=== PATIENT | male | born 1965 | race Caucasian/White ===

== ENCOUNTER → 2017-04-15 08:16 | Outpatient (CLI) | payer OTHER, SELFPAY ==
[2017-04-15 08:48] LABS: Absolute Lymphocyte Count 2.07 X10^3/ul (0.83-4.51); Absolute Neutrophil Count 4.2 X10^3/uL (2.0-7.7); Basophil# 0.04 X10^3/uL; Basophil% 0.6 % (0-1); Eosinophils% 4.2 % (0-5); Hematocrit 44.3 % (40-54); Hemoglobin 15.2 g/dl (13.0-16.5); Lymphocyte # 2.07 X10^3/ul (4.0); Lymphocyte % 29.2 % (19-41); Mean Corp Hgb Conc 34.3 g/gl (32-36); Mean Corpuscular Hgb 31.3 pg (27.0-32.0); Mean Corpuscular Volume 91.3 fL (80-94); Mean Platelet Vol. 9.6 fl (6.2-12.0); Monocyte# 0.49 X10^3/uL; Monocyte% 6.9 % (0-10); Neutrophil # 4.16 X10^3/uL (2.7-7.7); Neutrophil % 58.5 % (47-70); POSITIVE COUNT NO; POSITIVE DIFFERENTIAL NO; POSITIVE MORPHOLOGY NO; Platelet Count 274 K/mm3 (150-450); RBC Distribution Width CV 13.2 % (11.6-14.6); Red Blood Count 4.85 M/mm3 (4.6-6.2); White Blood Count 7.1 K/mm3 (4.4-11.0)
[2017-04-15 08:53] LABS: Erythrocyte Sedimentation Rate 15 mm/hr (0-20)
[2017-04-15 09:36] LABS: Microalbumin,Random Urine 33.7 mg/L (NO RANGE EST.); Microalbumin:Creatinine Ratio 92.3 mg/g CRE (<30 mg/g CRE)
[2017-04-15 09:53] LABS: AST(SGOT) 17 U/L (15-37); Alanine Aminotransfer ALT/SGPT 31 U/L (16-61); Albumin, Serum 3.8 g/dL (3.2-5.0); Alkaline Phosphatase 82 U/L (45-117); Anion Gap 10 (5-15); BUN 20 mg/dL (7-18); BUN/Creat Ratio 28.5 RATIO (10-20); Bilirubin, Direct < 0.05 mg/dL (0.00-0.30); CRP < 2.90 mg/L (0.0-3.0); Calcium,Total 8.8 mg/dL (8.5-10.1); Chloride 99 mmol/L (98-107); Cholesterol 211 mg/dL (200); EST Glomerular Filtration Rate 125 mL/min (>60); Est Glom Filt Rate - Afr Amer 151 mL/min (>60); Globulin 3.5 g/dL (2.2-4.2); Glucose 258 mg/dL (74-106); High Density Lipoprotein 29 mg/dL; Potassium 4.3 mmol/L (3.5-5.1); Protein, Total 7.3 g/dL (6.4-8.2); Rheumatoid Factor < 10.0 IU/mL (<15); Sodium Level 133 mmol/L (136-145); Thyroid Stim Hormone (TSH) 1.54 uIU/mL (0.358-3.74); Triglycerides 894 mg/dL
[2017-04-17 10:08] LABS: Vitamin D,25 Hydroxy 15.2 ng/mL (29.95-100.01)
[2017-04-17 14:15] LABS: ANTINUCLEAR ANTIBODIES DIRECT Negative (Negative)
[2017-04-20 14:13] LABS: CCP IgG Antibodies 3 units (0-19); HLA B27 Negative (.)
== END ==
PROVIDERS: Family Provider Family Medicine; PCP Family Medicine; Visit Provider Internal Medicine Cardiovascular Disease
DX: E11.65 Type 2 diabetes mellitus with hyperglycemia (principal); M06.9 Rheumatoid arthritis, unspecified; I25.10 Atherosclerotic heart disease of native coronary artery without angina pectoris
CPT/HCPCS: 80048; 80061; 80076; 81374; 82043; 82306; 82570; 83036; 84443; 85025; 85652; 86038; 86140; 86200; 86431

== ENCOUNTER 2017-09-26 11:36 | Day surgery (SDC) | payer OTHER, SELFPAY ==
--- NOTE | 2017-09-19 13:18 | PCM.HP.BLA ---
History and Physical DATE OF SURGERY: Right Carpal Tunnel Release on 09/26/2017 followed by a Left Carpal Tunnel Release on 10/18/17 SCHEDULED PROCEDURE: Right carpal tunnel release, left carpal tunnel release 3 weeks later HISTORY OF PRESENT ILLNESS: This is a 52-year-old male who has been having ongoing bilateral hand pain for approximately 8 years duration. Patient states he has pain that is aching and constant in both hands. He does report numbness and tingling into both hands. Pain is a 5/10 on average and can reach as high as a 10/10 at worst. Patient underwent an EMG nerve conduction study test on May 26, 2017 which revealed moderate bilateral carpal tunnel syndrome. Patient states the pain wakes him at night. Patient currently denies any chest pain, shortness of breath, fevers chills, recent infections. Patient has medical history pertinent for type 2 diabetes mellitus and hypertension. He is also underwent a heart stent in 2004 and states it was reopened in 2015. Patient is currently on plavix and aspirin. After failing conservative measures and discussing all treatment options with Dr. Matteo Ramos, the patient would like to proceed with the staged carpal tunnel release beginning with the right on September 26, 2017 followed by the left on October 18, 2017. REVIEW OF SYSTEMS: ROS: Const: Denies change in appetite, fever and weight change. CV: Denies chest pain, heart murmur and irregular heartbeat. Resp: Reports cough, but denies pneumonia, shortness of breath, tuberculosis and wheezing. GI: Reports constipation and diarrhea, but denies heartburn, nausea, rectal itching, bloody stools and vomiting. : Denies incontinence. Musculo: Denies leg swelling, pain, trouble walking and weakness. Skin: Denies Raynaud's, history of shingles and tattoo. Neuro: Reports numbness/tingling but denies ambulatory dysfunction, dizziness and tremor. Psych: Reports anxiety and insomnia, but denies stress. Gil/Lymph: Denies anemia, bleeding/bruising tendency and past transfusion. Reviewed, no changes. PAST MEDICAL HISTORY: Advance Care Plan: No Advance Directives Effective Date: 07/18/2017 PMH: Medical Problems: Arthritis, Diabetes, High Blood Pressure Accidents: Fracture - (1969) LT WRIST Surgical Hx: Heart Stent Anesthesia Complications: None Assistive Devices: Glasses Reviewed, no changes. SOCIAL HISTORY: SH: Marital: .Occupation: Not Currently Working.Work Status: Not Working Currently.Hand Dominance: Left-handed. Personal Habits: Cigarette Use: Former.Alcohol: Occasionally.Drug Use: Former Illegal Drug User.Enjoy Exercising: Exercises 1-3 X/Week. Reviewed, no changes. VITALS: Ht: 66.5 Wt: 206lb Wt k.442 BMI: 32.7 BP: 172/103 Pulse: 70 Resp: 16 T: 97.2 T: 36.2C ALLERGIES: No Known Drug Allergy MEDICATIONS: Tramadol HCL 50 mg 1-2 by mouth every 6 hours as needed pain, Lopressor 50 mg 1o bid, Plavix 75 mg 1po qday, Crestor 40 mg 4 times A week, Lovaza 1 gm 1po qday, Vitamin D3 Ultra Potency 61824 Unit 1 weekly, Acarbose 50 mg 1po bid, Lantus Solostar 100 Unit/ML daily PRE-OP EXAM: General appearance:NORMAL Other: Eyes: Conjunctivae and lids: NORMAL Pupils: ERR Ears, Nose, Mouth, and Throat: NORMAL Other: Inspection of lips, teeth and gums: NORMAL Other: Neck: Examination of neck: no masses noted. Respiratory: Assessment of respiratory effort: NORMAL Other: Auscultation of lungs: clear to auscultation no wheezes, rhonchi or rales. Cardiovascular: Auscultation of heart: regular rate and rhythm, no murmurs, gallops or rubs. Exam of carotid arteries: NORMAL Other: Gastrointestinal: Exam of abdomen: soft, nontender, nondistended bowel sounds present. PHYSICAL EXAMINATION: On exam of bilateral hands and they're cool to touch without erythema. Patient is nontender to palpation over bilateral hands. Patient has limited range of motion of wrist bilaterally. Special tests: Positive saline's bilaterally, positive Tinel's bilaterally, positive carpal compression test bilaterally. Negative Tinel's at the elbow. Sensation is intact to light touch. IMAGING STUDIES: EMG nerve conduction study exam was performed on May 26, 2017 at [facility] which reveals bilateral moderate carpal tunnel syndrome IMPRESSION: 1. Right moderate carpal tunnel syndrome 2. Left moderate carpal tunnel syndrome 3. Hypertension 4. Type 2 diabetes mellitus 5. History of previous heart stent 2004 and reopened 2015 PLAN: Dr. Ramos did discuss and review with the patient all treatment options including surgical versus nonsurgical options. Patient does wish to proceed with the above-stated procedure. Potential risks, benefits, and complications of the procedure were discussed in detail including but not limited to , infection, nerve and blood vessel damage, persistent pain, numbness, tingling, paresthesias, blood clot, pulmonary embolism, and requirement for possible further surgery. The patient expressed full understanding and has no further questions for the doctor. Patient does agree to proceed with the above-stated procedure and has signed the surgery consent form. We are contacting patient's physician with regards to stopping his Plavix and aspirin 5 days before surgery. ___ I have re-examined the patient. There are no clinical changes since date of exam. ___ See progress notes for changes. ___ Dictated on admission Date: Time: Signature:
[2017-09-26 11:53] VITALS: BP 121/66; PULSE 74; RESP 18; TEMP 36.5; O2SAT 97; BMI 33.4
[2017-09-26 12:56] LABS: Bedside Glucose 199 mg/dL (70-110)
[2017-09-26] MEDS: Bupivacaine 0.5% PF 10 ML VIAL (13:30)
--- NOTE | 2017-09-26 13:34 | PCM.OPRPT ---
Report of Operation Date of Procedure: 09/26/17 Pre-Operative Diagnosis: Right carpal tunnel syndrome Post-Operative Diagnosis: Right carpal tunnel syndrome Surgery/Procedure Performed:: Right carpal tunnel release Description of Surgical Findings:: Complete release transverse carpal ligament computer software engineer: None Type of Anesthesia:: Block,[place] Anesthesiologist: Shiva [place] Special Medications: Clindamycin Estimated Blood Loss (mL): 2 Fluids Replaced: 500 mL crystalloid Description of Procedure: Brief history operative indications: 52-year-old male patient with right carpal tunnel syndrome patient wished to proceed with right open carpal tunnel release. After discussing risks and benefits including but not limited to blood loss, DVTs, PEs, neurovascular damage, infection, hematoma and general risk of anesthesia, the patient demonstrated understanding wish to proceed with right open carpal tunnel release Procedure: On the date of the procedure, the patient's right upper extremity was marked in the preoperative area. Patient was taken back to the operating room, where the tourniquet was placed on the right upper extremity. Patient was given light sedation. All bony prominences are identified well-padded. Anesthesia assumed control C-spine and airway and remained in control throughout the remainder the procedure. [place] block was administered by anesthesia. The right upper extremity was prepped in sterile fashion. Surgeon then scrub. Upon reentering the room, the right upper extremity was prepped in a standard orthopedic fashion. A timeout was called and everyone agreed upon the side, the site, the procedure to be performed, patient identity and antibiotics given. The incision was marked out. Incision was taken at the skin subtenons tissue fat down to fascia. Fascia was then lightly tethered until the median nerve was visible. A [place] was placed proximally and distally, and then scissors were placed proximally and distally to release the transverse carpal ligament. During the release the others were never completely closed. The [place] was then placed proximally and distally once more to verify the transverse carpal ligament had been adequately released. The wound was then copiously irrigated out with normal saline. Wound was then closed using 3-0 nylon suture. 10 cc of 50-50 mixture of 1% lidocaine and 0.5% Sensorcaine without epinephrine injection was given. Xeroform dressing was placed, sterile dressing was placed, compressive dressing was placed. Tourniquet was let down. Volar splint was placed. Patient was awakened by anesthesia and transferred to the PACU for recovery. Postoperative plan: The patient will follow up in 2 weeks for removal splint removal sutures. At that time if they are doing well they will follow-up as needed. - Complications None - Admit VTE Documentation VTE Present on Admission: No VTE Mechan Device Prophylaxis: SCD's, Thigh High JENY Smith VTE Pharm Prophylaxis ordered?: No Reason prophylaxis not ordered:: Treatment Not Indicated
[2017-09-26 13:40] VITALS: BP 121/66; BP 96/61; PULSE 70; RESP 16; TEMP 36.3; O2SAT 92
[2017-09-26 13:45] VITALS: BP 121/66; BP 95/65; PULSE 70; RESP 16; O2SAT 94
[2017-09-26 13:50] VITALS: BP 104/64; BP 121/66; PULSE 68; RESP 16; O2SAT 93
[2017-09-26 13:55] VITALS: BP 100/75; BP 121/66; PULSE 68; RESP 16; TEMP 36.2; O2SAT 94
[2017-09-26 14:15] VITALS: BP 121/66
== END 2017-09-26 14:20 | disposition home or self-care (01) ==
LOC: SDC 11:37 → AC 11:38
PROVIDERS: Family Provider Family Medicine; PCP Family Medicine; Visit Provider Specialist
PROC: (CPT 64721; principal; 2017-09-26 15:00)
DX: G56.01 Carpal tunnel syndrome, right upper limb (principal); E78.00 Pure hypercholesterolemia, unspecified; E11.9 Type 2 diabetes mellitus without complications; Z79.4 Long term (current) use of insulin; I10 Essential (primary) hypertension; I25.2 Old myocardial infarction; Z87.891 Personal history of nicotine dependence
CPT/HCPCS: 01810; 64721; 82962; J7120

== ENCOUNTER → 2017-11-14 08:42 | Outpatient (CLI) | payer OTHER, SELFPAY | PROVIDERS: Family Provider Family Medicine; PCP Family Medicine; Visit Provider Specialist | DX: Z53.9 Procedure and treatment not carried out, unspecified reason (principal) ==

== ENCOUNTER → 2017-11-22 07:48 | Outpatient (CLI) | payer OTHER, SELFPAY ==
[2017-11-22 09:42] LABS: AST(SGOT) 20 U/L (15-37); Alanine Aminotransfer ALT/SGPT 29 U/L (16-61); Albumin, Serum 3.6 g/dL (3.2-5.0); Alkaline Phosphatase 74 U/L (45-117); Bilirubin, Direct 0.06 mg/dL (0.00-0.30); Cholesterol 200 mg/dL (200); Globulin 3.5 g/dL (2.2-4.2); High Density Lipoprotein 27 mg/dL; Protein, Total 7.1 g/dL (6.4-8.2); Triglycerides 560 mg/dL
== END ==
PROVIDERS: Family Provider Family Medicine; PCP Family Medicine; Referring Provider Nurse Practitioner Family; Visit Provider Nurse Practitioner Family
DX: E78.5 Hyperlipidemia, unspecified (principal); Z79.899 Other long term (current) drug therapy
CPT/HCPCS: 36415; 80061; 80076

== ENCOUNTER 2018-03-07 06:24 | Day surgery (SDC) | payer OTHER, SELFPAY ==
[2018-02-23 11:16] VITALS: BMI 32.3
--- NOTE | 2018-03-02 12:39 | PCM.HP.BLA ---
History and Physical DATE OF SURGERY: 03/07/2018 SCHEDULED PROCEDURE: left carpal tunnel release HISTORY OF PRESENT ILLNESS: This is a 52-year-old male who has been having ongoing bilateral hand pain for the past 8 years. Patient recently underwent a right carpal tunnel release on September 26, 2017. He is doing well from this procedure. He continues to have numbness and tingling into the left upper extremity. EMG nerve conduction study exams was obtained on May 26, 2017 which did reveal moderate carpal tunnel syndrome on the left. Patient states symptoms are daily and affect his activities of daily living. Patient has a medical history pertinent for type 2 diabetes mellitus and hypertension. Patient also underwent a heart stent 2004 and 2015. Patient currently is on Plavix and aspirin. Patient was able to stop his Plavix and aspirin 5 days prior to surgery on previous carpal tunnel release. He currently denies any chest pain, shortness of breath, fevers chills, or recent infections. Denies any change in medical history. After discussion with Dr. Matteo Ramos the patient would like to proceed with a left carpal tunnel release. REVIEW OF SYSTEMS: ROS: Const: Denies change in appetite, fever and weight change. CV: Denies chest pain, heart murmur and irregular heartbeat. Resp: Reports cough, but denies pneumonia, shortness of breath, tuberculosis and wheezing. GI: Reports constipation and diarrhea, but denies heartburn, nausea, rectal itching, bloody stools and vomiting. : Denies incontinence. Musculo: Denies leg swelling, pain, trouble walking and weakness. Skin: Denies Raynaud's, history of shingles and tattoo. Neuro: Reports numbness/tingling but denies ambulatory dysfunction, dizziness and tremor. Psych: Reports anxiety and insomnia, but denies stress. Gil/Lymph: Denies anemia, bleeding/bruising tendency and past transfusion. Reviewed, no changes. PAST MEDICAL HISTORY: Advance Care Plan: Other Directive, POA Effective Date: 03/02/2018 Other Directive, LIVING WILL Effective Date: 03/02/2018 PMH: Medical Problems: Arthritis, Diabetes, High Blood Pressure Accidents: Fracture - (1969) LT WRIST Surgical Hx: Heart Stent RT Carpal Tunnel Release - (09/26/2017) [email or web address] Anesthesia Complications: None Assistive Devices: Glasses Reviewed, no changes. SOCIAL HISTORY: SH: Marital: .Occupation: Not Currently Working.Work Status: Not Working Currently.Hand Dominance: Left-handed. Personal Habits: Cigarette Use: Former.Alcohol: Occasionally.Drug Use: Former Illegal Drug User.Enjoy Exercising: Exercises 1-3 X/Week. Reviewed, no changes. VITALS: Ht: 66.5 Wt: 202lb Wt k.627 BMI: 32.1 BP: 110/64 Pulse: 70 Resp: 16 T: 97.6 T: 36.4C ALLERGIES: No Known Drug Allergy MEDICATIONS: Lopressor 50 mg 1o bid, Plavix 75 mg 1po qday, Crestor 40 mg 4 times A week, Lovaza 1 gm 1po qday, Vitamin D3 Ultra Potency 05662 Unit 1 weekly, Acarbose 50 mg 1po bid, Lantus Solostar 100 Unit/ML daily, Tylenol 8 Hour 650 mg prn PRE-OP EXAM: General appearance:NORMAL Other: Eyes: Conjunctivae and lids: NORMAL Pupils: ERR Ears, Nose, Mouth, and Throat: NORMAL Other: Inspection of lips, teeth and gums: NORMAL Other: Neck: Examination of neck: no masses noted. Respiratory: Assessment of respiratory effort: NORMAL Other: Auscultation of lungs: clear to auscultation no wheezes, rhonchi or rales. Cardiovascular: Auscultation of heart: regular rate and rhythm, no murmurs, gallops or rubs. Exam of carotid arteries: NORMAL Other: Gastrointestinal: Exam of abdomen: soft, nontender, nondistended bowel sounds present. PHYSICAL EXAMINATION: Left hand is cool to touch without erythema. Patient has full composite fist and full extension of fingers. No significant atrophy appreciated. Patient has a positive carpal compression exam on the left, positive Tinel's on the left wrist. Negative Tinel's at the elbow. Sensation intact to light touch. Neurovascularly intact. IMAGING STUDIES: EMG nerve conduction study exam was done on May 26, 2017 which did reveal moderate carpal tunnel syndrome on the left. IMPRESSION: 1. Left carpal tunnel syndrome 2. Hypertension 3. Type 2 diabetes mellitus 4. Previous heart stent: On Plavix and aspirin PLAN: Dr. Matteo Ramos did discuss and review with the patient all treatment options including surgical versus nonsurgical options. Patient does wish to proceed with the above-stated procedure. Potential risks, benefits, and complications of the procedure were discussed in detail including but not limited to , infection, nerve and blood vessel damage, persistent pain, numbness, tingling, paresthesias, blood clot, pulmonary embolism, and requirement for possible further surgery. The patient expressed full understanding and has no further questions for the doctor. Patient does agree to proceed with the above-stated procedure and has signed the surgery consent form. Patient will hold the Plavix and aspirin prior to surgery as done prior to his right carpal tunnel release. This dictation was created using voice recognition software. Phonetic and/or grammatical errors may exist.. ___ I have re-examined the patient. There are no clinical changes since date of exam. ___ See progress notes for changes. ___ Dictated on admission Date: Time: Signature:
[2018-03-07 06:50] VITALS: BP 117/69; PULSE 71; RESP 18; TEMP 36.2; O2SAT 95; BMI 32.6
[2018-03-07 07:11] LABS: Bedside Glucose 295 mg/dL (70-110)
[2018-03-07] MEDS: Bupivacaine Mpf 0.5% 30 ML VIAL (08:30)
--- NOTE | 2018-03-07 08:37 | PCM.OPRPT ---
Report of Operation Date of Procedure: 03/07/18 Pre-Operative Diagnosis: Left carpal tunnel syndrome Post-Operative Diagnosis: Left carpal tunnel syndrome Surgery/Procedure Performed:: Left carpal tunnel release Description of Surgical Findings:: Complete release transverse carpal ligament service or work dispatcher: None Type of Anesthesia:: Block,[place] Anesthesiologist: Shiva [place] Special Medications: 600 mg clindamycin Estimated Blood Loss (mL): 2 Fluids Replaced: 400 mL crystalloid Description of Procedure: Brief history operative indications: 52-year-old male with left carpal tunnel syndrome. Patient wished to proceed with left open carpal tunnel release. After discussing risks and benefits including but not limited to blood loss, DVTs, PEs, neurovascular damage, infection, hematoma and general risk of anesthesia, the patient demonstrated understanding wish to proceed with left open carpal tunnel release Procedure: On the date of the procedure, the patient's left upper extremity was marked in the preoperative area. Patient was taken back to the operating room, where the tourniquet was placed on the right upper extremity. Patient was given light sedation. All bony prominences are identified well-padded. Anesthesia assumed control C-spine and airway and remained in control throughout the remainder the procedure. [place] block was administered by anesthesia. The left upper extremity was prepped in sterile fashion. Surgeon then scrub. Upon reentering the room, the left upper extremity was prepped in a standard orthopedic fashion. A timeout was called and everyone agreed upon the side, the site, the procedure to be performed, patient identity and antibiotics given. The incision was marked out. Incision was taken at the skin subtenons tissue fat down to fascia. Fascia was then lightly tethered until the median nerve was visible. A [place] was placed proximally and distally, and then scissors were placed proximally and distally to release the transverse carpal ligament. During the release the others were never completely closed. The [place] was then placed proximally and distally once more to verify the transverse carpal ligament had been adequately released. The wound was then copiously irrigated out with normal saline. Wound was then closed using 3-0 nylon suture. 10 cc of 50-50 mixture of 1% lidocaine and 0.5% Sensorcaine without epinephrine injection was given. Xeroform dressing was placed, sterile dressing was placed, compressive dressing was placed. Tourniquet was let down. Volar splint was placed. Patient was awakened by anesthesia and transferred to the PACU for recovery. Postoperative plan: The patient will follow up in 2 weeks for removal splint removal sutures. At that time if they are doing well they will follow-up as needed. - Complications none - Admit VTE Documentation VTE Present on Admission: No VTE Mechan Device Prophylaxis: SCD's VTE Pharm Prophylaxis ordered?: No Reason prophylaxis not ordered:: Treatment Not Indicated
[2018-03-07 08:45] VITALS: BP 117/69; BP 98/62; PULSE 66; RESP 16; TEMP 36.4; O2SAT 90
[2018-03-07 08:50] VITALS: BP 117/69; BP 99/61; PULSE 66; RESP 16; O2SAT 92
[2018-03-07 08:55] VITALS: BP 117/69; BP 91/64; PULSE 65; RESP 17; O2SAT 92
[2018-03-07 09:08] VITALS: BP 100/62; BP 117/69; PULSE 64; RESP 16; TEMP 36.3; O2SAT 94
[2018-03-07 09:11] LABS: Bedside Glucose 229 mg/dL (70-110)
[2018-03-07] MEDS: Ketorolac 30 MG/ML Syringe IV (09:34)
[2018-03-07 09:37] VITALS: BP 117/69
--- OUTSIDE RECORDS SUMMARY | 2018-05-09 01:37 | XMS RPT_ITS ---
:1965 Author Organization OHIP Support Name Relationship Address Phone DIXON, [place] Unavailable [address] + [place] [address] S Unavailable Unavailable Unavailable ALVAROGROVELAND, [place] Unavailable [address] + [place] [address] S Unavailable Unavailable Unavailable ALVAROMOUNT HERMON, [place] Unavailable [address] + [place] [address] S Unavailable Unavailable Unavailable ALVAROGROVELAND, [place] Unavailable [address] + [place] [address] S Unavailable Unavailable Unavailable ALVARO, [place] Unavailable [address] + [place] [address] S Unavailable Unavailable Unavailable ALVARO, [place] Unavailable [address] + [place] [address] S Unavailable Unavailable Unavailable ALVARO, [place] Unavailable [address] + [place] [address] UE Unavailable Unavailable Unavailable DIXON, [place] Unavailable [address] + [place] [address] UE Unavailable Unavailable Unavailable ALVARO, [place] Unavailable [address] + [place] [address] UE Unavailable Unavailable Unavailable ALVAROGROVELAND, [place] Unavailable [address] + [place] [address] UE Unavailable Unavailable Unavailable ALVARO, [place] Unavailable [address] + [place] [address] UE Unavailable Unavailable Unavailable Care Team Providers Name Role Phone Melanie Mejia Attending Unavailable Matteo Ramos Attending Unavailable Matteo Ramos Referring Unavailable Raúl Goss Primary Care Unavailable Farhat, Earle Attending Unavailable Goss, Raúl Referring Unavailable Farhat, Earle Attending Unavailable Efrain, Raghav Primary Care Unavailable Farhat, [place] Attending Unavailable Farhat, Earle Referring Unavailable Goss, Raúl Primary Care Unavailable Gina Kang Attending Unavailable Ilana Lockett Attending Unavailable Radha Jaime Attending Unavailable Efrain, Raghav Referring Unavailable Goss, Raúl Primary Care Unavailable Rachel, Matteo Attending Unavailable Rachel, Matteo Referring Unavailable Goss, Raúl Primary Care Unavailable Rachel, Matteo Attending Unavailable Rachel, Matteo Referring Unavailable Goss, Raúl Primary Care Unavailable Roof, Zachariah H Attending Unavailable Roof, Zachariah H Referring Unavailable Goss, Raúl Primary Care Unavailable PROBLEMS PROBLEMS DATE TYPE CONDITION / CODE ATTENDING STATUS SOURCE 02/26/2018 Unknown I10 - Essential Farhat, Earle Active [place] (primary) [facility] hypertension / Hospital I10(ICD-10) Repository 02/26/2018 Unknown Z95.5 - Presence of Farhat, Earle Active [place] coronary angioplasty [facility] implant [facility] graft / Hospital Z95.5(ICD-10) Repository 02/26/2018 Unknown E78.2 - Mixed Farhat, [place] Active [place] hyperlipidemia / Community E78.2(ICD-10) Hospital Repository 09/26/2017 Unknown G89.18 - Other acute Rachel, Matteo Active [place] postprocedural pain / Community G89.18(ICD-10) Hospital Repository 06/16/2017 Unknown I25.2 - Old Jaime, Active [place] myocardial infarction Radha Wan [facility] / I25.2(ICD-10) Hospital Repository 04/15/2017 Unknown E11.65 - Type 2 Farhat, Earle Active [place] diabetes mellitus [facility] with hyperglycemia / Hospital E11.65(ICD-10) Repository 04/15/2017 Unknown I25.10 - Farhat, Earle Active [place] Atherosclerotic heart Community disease of [facility] coronary artery Repository without angina pectoris / I25.10(ICD-10) 04/15/2017 Unknown M06.9 - Rheumatoid Farhat, Earle Active [place] arthritis, Community unspecified / Hospital M06.9(ICD-10) Repository PROCEDURES PROCEDURES No Procedure Records FoundRESULTS RESULTS BEDSIDE GLUCOSE Collected: 03/07/2018 Status: F Source: [place] 9:06 AM [facility] REPOSITORY TYPE CODE TESTS RESULT OUT OF REFERENCE UNITS RANGE LAB L501.080 70-110 mg/dL High BEDSIDE GLU 229 Result Comment: MANAGEMENT OF PATIENT CARE PER NURSING PROTOCOL Performed By: #### L501.080 #### [facility] Point of Care [address] [place] [address] OPERATIVE REPORT Observed: 03/07/2018 Status: F Source: [place] 8:39 AM [facility] REPOSITORY [facility] Medical Records Department [address] [place] [address] Operative Report 03/07/18 0837 MR#: [id number] Acct: [id number] Name: JAYASHREE JOHN Rep #: [id number] : 1965 52 From: Matteo Ramos MD PCP: Raúl Goss MD Status: REG [facility] [place] Y Location: [place] [address] Report of Operation Date of Procedure: 03/07/18 Pre-Operative Diagnosis: Left carpal tunnel syndrome Post-Operative Diagnosis: Left carpal tunnel syndrome Surgery/Procedure Performed:: Left carpal tunnel release Description of Surgical Findings:: Complete release transverse carpal ligament electricity trader: None Type of Anesthesia:: Block,Alligator Anesthesiologist: Shiva [place] Special Medications: 600 mg clindamycin Estimated Blood Loss (mL): 2 Fluids Replaced: 400 mL crystalloid Description of Procedure: Brief history operative indications: 52-year-old male with left carpal tunnel syndrome. Patient wished to proceed with left open carpal tunnel release. After discussing risks and benefits including but not limited to blood loss, DVTs, PEs, neurovascular damage, infection, hematoma and general risk of anesthesia, the patient demonstrated understanding wish to proceed with left open carpal tunnel release Procedure: On the date of the procedure, the patient's left upper extremity was marked in the preoperative area. Patient was taken back to the operating room, where the tourniquet was placed on the right upper extremity. Patient was given light sedation. All bony prominences are identified well-padded. Anesthesia assumed control C-spine and airway and remained in control throughout the remainder the procedure. Alligator block was administered by anesthesia. The left upper extremity was prepped in sterile fashion. Surgeon then scrub. Upon reentering the room, the left upper extremity was prepped in a standard orthopedic fashion. A timeout was called and everyone agreed upon the side, the site, the procedure to be performed, patient identity and antibiotics given. The incision was marked out. Incision was taken at the skin subtenons tissue fat down to fascia. Fascia was then lightly tethered until the median nerve was visible. A Delta was placed proximally and distally, and then scissors were placed proximally and distally to release the transverse carpal ligament. During the release the others were never completely closed. The Delta was then placed proximally and distally once more to verify the transverse carpal ligament had been adequately released. The wound was then copiously irrigated out with normal saline. Wound was then closed using 3-0 nylon suture. 10 cc of 50-50 mixture of 1% lidocaine and 0.5% Sensorcaine without epinephrine injection was given. Xeroform dressing was placed, sterile dressing was placed, compressive dressing was placed. Tourniquet was let down. Volar splint was placed. Patient was awakened by anesthesia and transferred to the PACU for recovery. Postoperative plan: The patient will follow up in 2 weeks for removal splint removal sutures. At that time if they are doing well they will follow-up as needed. - Complications none - Admit VTE Documentation VTE Present on Admission: No VTE Mechan Device Prophylaxis: SCD's VTE Pharm Prophylaxis ordered?: No Reason prophylaxis not ordered:: Treatment Not Indicated 03/07/18 0839 <Electronically signed by Matteo Ramos MD> Date Matteo Ramos MD CC: Raúl Goss MD; Matteo Ramos MD Signed BEDSIDE GLUCOSE Collected: 03/07/2018 Status: F Source: [place] 6:58 AM [facility] REPOSITORY TYPE CODE TESTS RESULT OUT OF REFERENCE UNITS RANGE LAB L501.080 70-110 mg/dL High BEDSIDE GLU 295 Result Comment: MANAGEMENT OF PATIENT CARE PER NURSING PROTOCOL Performed By: #### L501.080 #### [facility] Point of Care [address] [place] [address] HISTORY AND PHYSICAL Observed: 03/02/2018 Status: F Source: RACHEL EXAM 12:39 PM [facility] REPOSITORY [facility] Medical Records Department [address] [place] [address] History and Physical 03/02/18 1239 MR#: [id number] Acct: [id number] Name: JAYASHREE JOHN Rep #: [id number] : 1965 52 From: Mark Loo PA-C PCP: Raúl Goss MD Status: PRE [facility] [place] Y Location: [facility] [place] [facility] History and Physical DATE OF SURGERY: 03/07/2018 SCHEDULED PROCEDURE: left carpal tunnel release HISTORY OF PRESENT ILLNESS: This is a 52-year-old male who has been having ongoing bilateral hand pain for the past 8 years. Patient recently underwent a right carpal tunnel release on September 26, 2017. He is doing well from this procedure. He continues to have numbness and tingling into the left upper extremity. EMG nerve conduction study exams was obtained on May 26, 2017 which did reveal moderate carpal tunnel syndrome on the left. Patient states symptoms are daily and affect his activities of daily living. Patient has a medical history pertinent for type 2 diabetes mellitus and hypertension. Patient also underwent a heart stent 2004 and 2015. Patient currently is on Plavix and aspirin. Patient was able to stop his Plavix and aspirin 5 days prior to surgery on previous carpal tunnel release. He currently denies any chest pain, shortness of breath, fevers chills, or recent infections. Denies any change in medical history. After discussion with Dr. Matteo Ramos the patient would like to proceed with a left carpal tunnel release. REVIEW OF SYSTEMS: ROS: Const: Denies change in appetite, fever and weight change. CV: Denies chest pain, heart murmur and irregular heartbeat. Resp: Reports cough, but denies pneumonia, shortness of breath, tuberculosis and wheezing. GI: Reports constipation and diarrhea, but denies heartburn, nausea, rectal itching, bloody stools and vomiting. : Denies incontinence. Musculo: Denies leg swelling, pain, trouble walking and weakness. Skin: Denies Raynaud's, history of shingles and tattoo. Neuro: Reports numbness/tingling but denies ambulatory dysfunction, dizziness and tremor. Psych: Reports anxiety and insomnia, but denies stress. Gil/Lymph: Denies anemia, bleeding/bruising tendency and past transfusion. Reviewed, no changes. PAST MEDICAL HISTORY: Advance Care Plan: Other Directive, POA Effective Date: 03/02/2018 Other Directive, LIVING WILL Effective Date: 03/02/2018 PMH: Medical Problems: Arthritis, Diabetes, High Blood Pressure Accidents: Fracture - (1969) LT WRIST Surgical Hx: Heart Stent RT Carpal Tunnel Release - (09/26/2017) [email or web address] Anesthesia Complications: None Assistive Devices: Glasses Reviewed, no changes. SOCIAL HISTORY: SH: Marital: .Occupation: Not Currently Working.Work Status: Not Working Currently.Hand Dominance: Left-handed. Personal Habits: Cigarette Use: Former.Alcohol: Occasionally.Drug Use: Former Illegal Drug User.Enjoy Exercising: Exercises 1-3 X/Week. Reviewed, no changes. VITALS: Ht: 66.5 Wt: 202lb Wt k.627 BMI: 32.1 BP: 110/64 Pulse: 70 Resp: 16 T: 97.6 T: 36.4C ALLERGIES: No Known Drug Allergy MEDICATIONS: Lopressor 50 mg 1o bid, Plavix 75 mg 1po qday, Crestor 40 mg 4 times A week, Lovaza 1 gm 1po qday, Vitamin D3 Ultra Potency 77484 Unit 1 weekly, Acarbose 50 mg 1po bid, Lantus Solostar 100 Unit/ML daily, Tylenol 8 Hour 650 mg prn PRE-OP EXAM: General appearance:NORMAL Other: Eyes: Conjunctivae and lids: NORMAL Pupils: ERR Ears, Nose, Mouth, and Throat: NORMAL Other: Inspection of lips, teeth and gums: NORMAL Other: Neck: Examination of neck: no masses noted. Respiratory: Assessment of respiratory effort: NORMAL Other: Auscultation of lungs: clear to auscultation no wheezes, rhonchi or rales. Cardiovascular: Auscultation of heart: regular rate and rhythm, no murmurs, gallops or rubs. Exam of carotid arteries: NORMAL Other: Gastrointestinal: Exam of abdomen: soft, nontender, nondistended bowel sounds present. PHYSICAL EXAMINATION: Left hand is cool to touch without erythema. Patient has full composite fist and full extension of fingers. No significant atrophy appreciated. Patient has a positive carpal compression exam on the left, positive Tinel's on the left wrist. Negative Tinel's at the elbow. Sensation intact to light touch. Neurovascularly intact. IMAGING STUDIES: EMG nerve conduction study exam was done on May 26, 2017 which did reveal moderate carpal tunnel syndrome on the left. IMPRESSION: 1. Left carpal tunnel syndrome 2. Hypertension 3. Type 2 diabetes mellitus 4. Previous heart stent: On Plavix and aspirin PLAN: Dr. Matteo Ramos did discuss and review with the patient all treatment options including surgical versus nonsurgical options. Patient does wish to proceed with the above-stated procedure. Potential risks, benefits, and complications of the procedure were discussed in detail including but not limited to , infection, nerve and blood vessel damage, persistent pain, numbness, tingling, paresthesias, blood clot, pulmonary embolism, and requirement for possible further surgery. The patient expressed full understanding and has no further questions for the doctor. Patient does agree to proceed with the above-stated procedure and has signed the surgery consent form. Patient will hold the Plavix and aspirin prior to surgery as done prior to his right carpal tunnel release. This dictation was created using voice recognition software. Phonetic and/or grammatical errors may exist.. ___ I have re-examined the patient. There are no clinical changes since date of exam. ___ See progress notes for changes. ___ Dictated on admission Date: Time: Signature: 03/02/18 1239 <Electronically signed by Mark Loo PA-C> Date Mark Loo PA-C Cosigner Signature: Date (if applicable) CC: Raúl Goss MD; Mark MAZARIEGOS Signed CARDIOLOGY VISIT Observed: 02/23/2018 Status: F Source: R[place]HEL REPORT 11:40 AM [facility] REPOSITORY [facility] [address] [place] [address] OFFICE VISIT Date of Service: 02/23/18 MR#: [id number] Acct: [id number] Name: JAYASHREE JHON Rep #: [id number] : 1965 Provider: Earle Dougherty MD Age/Sex: 52/M Location: [facility] Status: Signed HPI HPI Chief Complaint: Follow-up visit Details: JAYASHREE JOHN, is a 52 M who presents to the office today for a cardiovascular follow-up. He has a history of coronary artery disease with stenting to his circumflex in 2004 and in 2015, palpitations, hypertension and hyperlipidemia. From a cardiac standpoint, patient is doing well. He does not have any chest discomfort/heaviness/tightness. His exercise tolerance is stable for his age. He does not have any worsening symptoms of shortness of breath. He denies any PND. He does not have any orthopnea. He does not have any symptoms of congestive heart failure. He does not have any palpitations that he is aware of. He does not have any lightheadedness or dizziness. He does not have any near-syncope or syncope. He does not have any lower extremity edema. He does not have any symptoms of claudication.He is planning on having carpel tunnel surgery done. His physical exam demonstrates clear lung cardozo regular rate and rhythm no pedal edema and S4 is present. Intake Vital Signs02/23/18 Height 5 ft 6 in 02/23/18 Weight: 200 lb 02/23/18 Body Mass Index (BMI) 32.3 02/23/18 Blood Pressure 120/62 02/23/18 Respiratory Rate 16 Intake Visit Reasons: 6 M FU (we r/s from 01-19, pt r/s from 01-26) Allergies cefprozil Allergy (Verified 06/16/17 09:57) Hives Medications Aspirin [Aspirin, Baby] 81 mg PO DAILY@0800 03/04/14 [History Confirmed 02/23/18] metformin 1,000 mg tablet 1,000 mg PO BID 06/08/17 [History Confirmed 02/23/18] insulin glargine (U- 100) 100 unit/mL subcutaneous solution 20 unit SC QHS 06/16/17 [History Confirmed 02/23/18] Acetaminophen [Tylenol] 500 - 1,000 mg PO Q6H PRN PRN 09/18/17 [History Confirmed 02/23/18] Clopidogrel Bisulfate [Clopidogrel] 75 mg PO QDAY 09/18/17 [History Confirmed 02/23/18] Ergocalciferol [Vitamin D] 50,000 unit PO Q7D 09/18/17 [History Confirmed 02/23/18] lisinopril 20 mg tablet 20 mg PO QDAY #90 tab 09/19/17 [Rx Confirmed 02/23/18] traMADol [Ultram] 50 - 100 mg PO Q6H PRN PRN 7 Days #30 tab 09/26/17 [Rx Confirmed 02/23/18] metoprolol tartrate 50 mg tablet 50 mg PO BID #180 tab 10/17/17 [Rx Confirmed 02/23/18] omega-3 acid ethyl esters 1 gram capsule 2 cap PO DAILY #90 cap 01/01/18 [Rx Confirmed 02/23/18] nitroglycerin 0.4 mg sublingual tablet 0.4 mg SUBLINGUAL Q5M PRN #25 tab 02/23/18 [Rx Confirmed 02/23/18] rosuvastatin 40 mg tablet 40 mg PO SUWEFRSA #90 tab 02/23/18 [Rx Confirmed 02/23/18] [facility] Medical History Essential (primary) hypertension (Chronic) Hyperlipidemia (Chronic) Old myocardial infarction (Chronic) Atherosclerotic heart disease of [place] coronary artery without angina pectoris (Chronic) Obstructive sleep apnea (Chronic) Osteoarthritis (Chronic) Type 2 diabetes mellitus (Chronic) Surgical History History of coronary artery stent placement (Resolved 03/10/15) History of carpal tunnel release (Resolved) History of ethmoidectomy (Resolved) History of nasal surgery (Resolved) Family History Father Sudden cardiac Other Myocardial infarction Social History Smoking Status: Former smoker alcohol intake: current alcohol intake frequency: holidays/special occasions only substance use type: does not use diet: low carbohydrate caffeine: Yes Type: coffee Number of servings: 3 what type of physical activity do you participate in: none seatbelt use: always do you feel safe at home: Yes Cardiology Exam Const Appearance: cooperative, healthy appearing, well developed, well groomed and no acute distress Nutritional Appearance: well nourished and average body habitus Orientation: alert, awake and oriented x3 Head Head: normal to inspection, normocephalic and atraumatic Ears: hearing grossly normal bilaterally and external ears normal Nose: external nose normal, nasal mucous membranes and turbinates normal, nares normal, septum normal, no nasal discharge Face and Sinus: face symmetric Mouth: oral mucosae normal, tongue normal, oropharynx normal and moist mucous membranes Teeth and gingiva: dentition normal Throat: posterior oropharynx normal, tonsils normal and uvula midline Eyes General: appearance normal, both eyes and all related structures Eyelids: eyelids normal Conjunctivae: conjunctivae normal Pupils: PERRL, normal by confrontation and accommodation normal EOM: EOM intact bilaterally Neck Neck: normal visual inspection, trachea midline and no JVD JVD: +5 Carotids: normal carotid upstroke and bounding pulses Chest Chest inspection: normal inspection of the chest, symmetric chest movement and normal respiratory effort Auscultation: Bilateral: Clear to Auscultation Cardio Palpation: normal PMI Rate: regular rate Rhythm: regular rhythm Heart sounds: S1 normal, S2 normal and normal, physiologic split S2; negative rub, gallop or murmur GI GI: normal to inspection, soft, no hepatosplenomegaly and bowel sounds present Neuro General: alert, awake, oriented x3, no focal sensory deficit, gait normal and moves all extremities Skin Skin: no rashes or lesions noted Extremities Pulses: Normal: Right Femoral Pulse, Left Femoral Pulse, Right Dorsalis Pedis Pulse, Left Dorsalis Pedis Pulse, Right Posterior Tibial Pulse, Left Posterior Tibial Pulse, Right Radial Pulse, Left Radial Pulse Lower Extremity Edema: None: Bilateral Musculoskel Musculoskeletal: No joint tenderness Psych Psychological: normal affect Assessment AND Plan 1. Essential (primary) hypertension I10 Plan His blood pressure appears to be in excellent control at this time I would not recommend that we make any changes. He will remain on the same medications. He can continue these up to and including the day of his surgery. 2. History of coronary artery stent placement Z95.5 PCI-KARRIE-ISR Distal Cx w/ 3.0 x 22 mm Resolute Integrity Stent 03/10/15 [id number] Cx 02/23/2004 Plan He does have a history of coronary artery disease. He is not had any evidence of angina. With the upcoming carpal tunnel surgery I do not think that he needs any stress testing. 3. Mixed hyperlipidemia E78.2 Plan He does have a history of hyperlipidemia. My recommendation at this time will be to continue him on the same medications his most recent lipid profile demonstrated total cholesterol 200, his triglycerides were markedly elevated. He will have a repeat lipid profile performed. 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) Coding Level of Care Code Off vis,est,level 3 Diagnoses Essential (primary) hypertension I10 History of coronary artery stent placement Z95.5 Mixed hyperlipidemia E78.2 Hyperlipidemia type: mixed hyperlipidemia Coding Level of Care Code Off vis,est,level 3 Diagnoses Essential (primary) hypertension I10 History of coronary artery stent placement Z95.5 Mixed hyperlipidemia E78.2 Hyperlipidemia type: mixed hyperlipidemia Supplemental Info Supplemental Information Labs LDL Cholesterol TNP 11/22/17 HDL Cholesterol 27 mg/dL (40-) L 11/22/17 Triglycerides 560 mg/dL (-199) H 11/22/17 VLDL Cholesterol TNP 11/22/17 Diagnostics Electrocardiogram 06/16/17 02/23/18 1140 <Electronically signed by Earle Dougherty MD> Date Earle Dougherty MD Cosigner Signature: Date (if applicable) CC: Raúl Goss MD LIVER PROFILE Collected: 11/22/2017 Status: F Source: [place] 7:54 AM [facility] REPOSITORY TYPE CODE TESTS RESULT OUT OF RANGE REFERENCE UNITS LAB L501.1500 6.4-8.2 g/dL Normal T PROT 7.1 LAB L501.1800 3.2-5.0 g/dL Normal ALB 3.6 LAB L501.1950 2.2-4.2 g/dL Normal GLOB 3.5 LAB L501.4100 15-37 U/L Normal AST 20 Result Comment: Slight Hemolysis, Result may be falsely increased. LAB L501.4305 45-117 U/L Normal ALK P 74 LAB L501.4405 16-61 U/L Normal ALT 29 LAB L501.4600 0.20-1.00 mg/dL Normal T BILI 0.30 LAB L501.4700 0.00-0.30 mg/dL Normal D BILI 0.06 Performed By: #### L500.3400, L500.4100 #### [facility] [address] [facility] [address] [place], [place], [id number] LIPID PROFILE Collected: 11/22/2017 Status: F Source: [place] 7:54 AM [facility] REPOSITORY TYPE CODE TESTS RESULT OUT OF RANGE REFERENCE UNITS LAB L501.4900 200 mg/dL Normal CHOL 200 Result Comment: <200 mg/dL Desirable 200-240 mg/dL Borderline >240 mg/dL High Risk LAB L501.5000 mg/dL High TRIG 560 Result Comment: The drugs N-Acetylcysteine and Metamizole may falsely depress this assay. TRIGLYCERIDE IS GREATER THAN 400 mg/dL. LDL RESULT IS INVALID AND WILL NOT BE REPORTED. Serum Triglycerides Reference Interval Normal <150 mg/dL Borderline high 150 - 199 mg/dL High 200 - 499 mg/dL Very High > or = 500 mg/dL LAB L501.6400 mg/dL Low HDL 27 Result Comment: The drugs N-Acetylcysteine and Metamizole may falsely depress this assay. Reference Range HDL <40 mg/dL Low HDL Cholesterol HDL >or= 60 mg/dL High HDL Cholesterol LAB L501.6500 0-130 mg/dL Test Normal not performed LDL LAB L501.6600 5-40 mg/dL Test Normal not performed VLDL Performed By: #### L500.3400, L500.4100 #### [facility] [address] [place], [place], [id number] OPERATIVE REPORT Observed: 09/26/2017 Status: F Source: [place] 1:36 PM [facility] REPOSITORY [facility] Medical Records Department [address] [place] [address] Operative Report 09/26/17 1334 MR#: [id number] Acct: [id number] Name: JAYASHREE JOHN Rep #: [id number] : 1965 52 From: Matteo Ramos MD PCP: Raúl Goss MD Status: REG [facility] [place] Y Location: [place] [address] Report of Operation Date of Procedure: 09/26/17 Pre-Operative Diagnosis: Right carpal tunnel syndrome Post-Operative Diagnosis: Right carpal tunnel syndrome Surgery/Procedure Performed:: Right carpal tunnel release Description of Surgical Findings:: Complete release transverse carpal ligament electricity trader: None Type of Anesthesia:: Block,Alligator Anesthesiologist: Shiva [place] Special Medications: Clindamycin Estimated Blood Loss (mL): 2 Fluids Replaced: 500 mL crystalloid Description of Procedure: Brief history operative indications: 52-year-old male patient with right carpal tunnel syndrome patient wished to proceed with right open carpal tunnel release. After discussing risks and benefits including but not limited to blood loss, DVTs, PEs, neurovascular damage, infection, hematoma and general risk of anesthesia, the patient demonstrated understanding wish to proceed with right open carpal tunnel release Procedure: On the date of the procedure, the patient's right upper extremity was marked in the preoperative area. Patient was taken back to the operating room, where the tourniquet was placed on the right upper extremity. Patient was given light sedation. All bony prominences are identified well-padded. Anesthesia assumed control C- spine and airway and remained in control throughout the remainder the procedure. Sanchez block was administered by anesthesia. The right upper extremity was prepped in sterile fashion. Surgeon then scrub. Upon reentering the room, the right upper extremity was prepped in a standard orthopedic fashion. A timeout was called and everyone agreed upon the side, the site, the procedure to be performed, patient identity and antibiotics given. The incision was marked out. Incision was taken at the skin subtenons tissue fat down to fascia. Fascia was then lightly tethered until the median nerve was visible. A Delta was placed proximally and distally, and then scissors were placed proximally and distally to release the transverse carpal ligament. During the release the others were never completely closed. The Delta was then placed proximally and distally once more to verify the transverse carpal ligament had been adequately released. The wound was then copiously irrigated out with normal saline. Wound was then closed using 3-0 nylon suture. 10 cc of 50-50 mixture of 1% lidocaine and 0.5% Sensorcaine without epinephrine injection was given. Xeroform dressing was placed, sterile dressing was placed, compressive dressing was placed. Tourniquet was let down. Volar splint was placed. Patient was awakened by anesthesia and transferred to the PACU for recovery. Postoperative plan: The patient will follow up in 2 weeks for removal splint removal sutures. At that time if they are doing well they will follow-up as needed. - Complications None - Admit VTE Documentation VTE Present on Admission: No VTE Mechan Device Prophylaxis: SCD's, Thigh High JENY Hose VTE Pharm Prophylaxis ordered?: No Reason prophylaxis not ordered:: Treatment Not Indicated 09/26/17 1336 <Electronically signed by Matteo Ramos MD> Date Matteo Ramos MD CC: Raúl Goss MD; Matteo Ramos MD Signed BEDSIDE GLUCOSE Collected: 09/26/2017 Status: F Source: RACHEL 11:48 AM [facility] REPOSITORY TYPE CODE TESTS RESULT OUT OF REFERENCE UNITS RANGE LAB L501.080 70-110 mg/dL High BEDSIDE GLU 199 Result Comment: MANAGEMENT OF PATIENT CARE PER NURSING PROTOCOL Performed By: #### L501.080 #### [facility] Point of Care [address] [place] [address] HISTORY AND PHYSICAL Observed: 09/19/2017 Status: F Source: RACHEL EXAM 1:23 PM [facility] REPOSITORY [facility] Medical Records Department [address] [place] [address] History and Physical 09/19/17 1318 MR#: [id number] Acct: [id number] Name: JAYASHREE JOHN Rep #: [id number] : 1965 52 From: Mark Loo PA-C PCP: Raúl Goss MD Status: PRE [facility] [place] Y Location: [facility] [place] History and Physical DATE OF SURGERY: Right Carpal Tunnel Release on 09/26/2017 followed by a Left Carpal Tunnel Release on 10/18/17 SCHEDULED PROCEDURE: Right carpal tunnel release, left carpal tunnel release 3 weeks later HISTORY OF PRESENT ILLNESS: This is a 52-year-old male who has been having ongoing bilateral hand pain for approximately 8 years duration. Patient states he has pain that is aching and constant in both hands. He does report numbness and tingling into both hands. Pain is a 5/10 on average and can reach as high as a 10/10 at worst. Patient underwent an EMG nerve conduction study test on May 26, 2017 which revealed moderate bilateral carpal tunnel syndrome. Patient states the pain wakes him at night. Patient currently denies any chest pain, shortness of breath, fevers chills, recent infections. Patient has medical history pertinent for type 2 diabetes mellitus and hypertension. He is also underwent a heart stent in 2004 and states it was reopened in 2015. Patient is currently on plavix and aspirin. After failing conservative measures and discussing all treatment options with Dr. Matteo Ramos, the patient would like to proceed with the staged carpal tunnel release beginning with the right on September 26, 2017 followed by the left on October 18, 2017. REVIEW OF SYSTEMS: ROS: Const: Denies change in appetite, fever and weight change. CV: Denies chest pain, heart murmur and irregular heartbeat. Resp: Reports cough, but denies pneumonia, shortness of breath, tuberculosis and wheezing. GI: Reports constipation and diarrhea, but denies heartburn, nausea, rectal itching, bloody stools and vomiting. : Denies incontinence. Musculo: Denies leg swelling, pain, trouble walking and weakness. Skin: Denies Raynaud's, history of shingles and tattoo. Neuro: Reports numbness/tingling but denies ambulatory dysfunction, dizziness and tremor. Psych: Reports anxiety and insomnia, but denies stress. Gil/Lymph: Denies anemia, bleeding/bruising tendency and past transfusion. Reviewed, no changes. PAST MEDICAL HISTORY: Advance Care Plan: No Advance Directives Effective Date: 07/18/2017 PMH: Medical Problems: Arthritis, Diabetes, High Blood Pressure Accidents: Fracture - (1970) LT WRIST Surgical Hx: Heart Stent Anesthesia Complications: None Assistive Devices: Glasses Reviewed, no changes. SOCIAL HISTORY: SH: Marital: .Occupation: Not Currently Working.Work Status: Not Working Currently.Hand Dominance: Left-handed. Personal Habits: Cigarette Use: Former.Alcohol: Occasionally.Drug Use: Former Illegal Drug User.Enjoy Exercising: Exercises 1-3 X/Week. Reviewed, no changes. VITALS: Ht: 66.5 Wt: 206lb Wt k.442 BMI: 32.7 BP: 172/103 Pulse: 70 Resp: 16 T: 97.2 T: 36.2C ALLERGIES: No Known Drug Allergy MEDICATIONS: Tramadol HCL 50 mg 1-2 by mouth every 6 hours as needed pain, Lopressor 50 mg 1o bid, Plavix 75 mg 1po qday, Crestor 40 mg 4 times A week, Lovaza 1 gm 1po qday, Vitamin D3 Ultra Potency 62834 Unit 1 weekly, Acarbose 50 mg 1po bid, Lantus Solostar 100 Unit/ML daily PRE-OP EXAM: General appearance:NORMAL Other: Eyes: Conjunctivae and lids: NORMAL Pupils: ERR Ears, Nose, Mouth, and Throat: NORMAL Other: Inspection of lips, teeth and gums: NORMAL Other: Neck: Examination of neck: no masses noted. Respiratory: Assessment of respiratory effort: NORMAL Other: Auscultation of lungs: clear to auscultation no wheezes, rhonchi or rales. Cardiovascular: Auscultation of heart: regular rate and rhythm, no murmurs, gallops or rubs. Exam of carotid arteries: NORMAL Other: Gastrointestinal: Exam of abdomen: soft, nontender, nondistended bowel sounds present. PHYSICAL EXAMINATION: On exam of bilateral hands and they're cool to touch without erythema. Patient is nontender to palpation over bilateral hands. Patient has limited range of motion of wrist bilaterally. Special tests: Positive saline's bilaterally, positive Tinel's bilaterally, positive carpal compression test bilaterally. Negative Tinel's at the elbow. Sensation is intact to light touch. IMAGING STUDIES: EMG nerve conduction study exam was performed on May 26, 2017 at [facility] which reveals bilateral moderate carpal tunnel syndrome IMPRESSION: 1. Right moderate carpal tunnel syndrome 2. Left moderate carpal tunnel syndrome 3. Hypertension 4. Type 2 diabetes mellitus 5. History of previous heart stent 2004 and reopened 2015 PLAN: Dr. Ramos did discuss and review with the patient all treatment options including surgical versus nonsurgical options. Patient does wish to proceed with the above-stated procedure. Potential risks, benefits, and complications of the procedure were discussed in detail including but not limited to , infection, nerve and blood vessel damage, persistent pain, numbness, tingling, paresthesias, blood clot, pulmonary embolism, and requirement for possible further surgery. The patient expressed full understanding and has no further questions for the doctor. Patient does agree to proceed with the above-stated procedure and has signed the surgery consent form. We are contacting patient's physician with regards to stopping his Plavix and aspirin 5 days before surgery. ___ I have re-examined the patient. There are no clinical changes since date of exam. ___ See progress notes for changes. ___ Dictated on admission Date: Time: Signature: 09/19/17 1323 <Electronically signed by Mark Loo PA-C> Date Mark Loo PA-C [facility] Signature: Date (if applicable) CC: Raúl Goss MD; Mark MAZARIEGOS Signed CARDIOLOGY VISIT Observed: 06/18/2017 Status: F Source: OLI REPORT 10:58 AM [facility] REPOSITORY [facility] [address] [place] [address] OFFICE VISIT Date of Service: 06/16/17 MR#: [id number] Acct: [id number] Name: JAYASHREE JOHN Rep #: [id number] : 1965 Provider: Radha Jaime Age/Sex: 52/M Location: [facility] Status: Signed HPI HPI Details: JAYASHREE JOHN, is a 52 M who presents to the office today for a cardiovascular follow-up. He has a history of coronary artery disease with stenting to his circumflex in 2004 and in 2015, palpitations, hypertension and hyperlipidemia. He has been working with his PCP on diabetes. His A1C in April was 12, he has since started insulin. EKG today demonstrates sinus rhythm with a heart rate of 70. From a cardiac standpoint, patient is doing well. He does not have any chest discomfort/heaviness/tightness. His exercise tolerance is stable for his age. He does not have any worsening symptoms of shortness of breath. He denies any PND. He does not have any orthopnea. He does not have any symptoms of congestive heart failure. He does not have any palpitations that he is aware of. He does not have any lightheadedness or dizziness. He does not have any near-syncope or syncope. He does not have any lower extremity edema. He does not have any symptoms of claudication. He is planning on having carpel tunnel surgery done this summer. With his diabetes he is wanting a stress test in the fall. Intake Vital Signs06/16/17 Height 5 ft 7 in 06/16/17 Weight: 206 lb 06/16/17 Body Mass Index (BMI) 32.2 06/16/17 Blood Pressure 128/74 Intake Visit Reasons: 6 M FU Zoogler Required: No Accompanied by: NONE Is patient in pain?: No Allergies cefprozil Allergy (Verified 06/16/17 09:57) Hives Medications Aspirin [Aspirin, Baby] 81 mg PO DAILY@0800 03/04/14 [History Confirmed 06/16/17] Lisinopril [Zestril] 40 mg PO DAILY 03/04/14 [History Confirmed 06/16/17] Metoprolol Tartrate [Lopressor (beta colleen)] 50 mg PO BID 03/04/14 [History Confirmed 06/16/17] [place]-3 Fatty Acids/Fish Oil [Fish Oil 1,000 mg Capsule] 1 ea PO DAILY 03/04/14 [History Confirmed 06/16/17] Rosuvastatin Calcium [Crestor] 40 mg PO QHS 03/04/14 [History Confirmed 06/16/17] clopidogrel 75 mg tablet 75 mg PO QDAY 06/08/17 [History Confirmed 06/16/17] metformin 1,000 mg tablet 1,000 mg PO BID 06/08/17 [History Confirmed 06/16/17] nitroglycerin 0.4 mg sublingual tablet 0.4 mg SUBLINGUAL Q5M PRN 06/08/17 [History Confirmed 06/16/17] cholecalciferol (vitamin D3) 5,000 unit capsule 5,000 unit PO QDAY 06/16/17 [History Confirmed 06/16/17] insulin glargine (U-100) 100 unit/mL subcutaneous solution 20 unit SC QDAY 06/16/17 [History Confirmed 06/16/17] Ejection fraction %: 60 to 64 PFSH Medical History Arthritis (Chronic) Controlled type 2 diabetes mellitus with peripheral circulatory disorder (Chronic) Hyperlipidemia (Chronic) History of heart artery stent (Resolved) Hypertension (Chronic) Surgical History History of ethmoidectomy (Resolved) History of nasal surgery (Resolved) Family History Father No problems noted. Social History Smoking Status: Current every day smoker alcohol intake: current alcohol intake frequency: holidays/special occasions only substance use type: does not use diet: low carbohydrate caffeine: Yes Type: coffee Number of servings: 3 what type of physical activity do you participate in: none seatbelt use: always do you feel safe at home: Yes ROS Const Const: Negative for weakness, fatigue, fever(s) or headache(s) Eyes Eyes: Negative for blind spots, loss of peripheral vision or transient loss of vision ENT ENT: Negative for headache(s), dizziness, tinnitus or Nosebleed/epistaxis Cardio Chest Pain: No Palpitations: No Edema: None Muscle aches with walking: None Resp Respiratory: Negative for SOB with activity, SOB at rest, SOB orthopnea\SOB lying down or Cough GI GI: Negative nausea, vomiting, heartburn or vomiting blood/hematemesis : Negative for hematuria Musc Musc: Negative for muscle aches/ myalgia Neuro Neuro: Negative for weakness, headache(s), dizziness, near syncope, syncope, lightheadedness or orthostatic symptoms Gil Hematologic/Lymphatic: Negative for easy bleeding Endo Endo: Negative for fatigue Cardiology Exam Const Appearance: cooperative, no acute distress and well developed Orientation: alert, awake and oriented x3 Head Head: normocephalic and atraumatic Mouth: moist mucous membranes Eyes General: appearance normal, both eyes and all related structures Conjunctivae: conjunctivae normal Pupils: PERRL EOM: EOM intact bilaterally Neck Neck: normal visual inspection, no lymphadenopathy and no JVD Carotids: Negative bruit Neck Mass: Negative Neck mass Chest Chest inspection: normal inspection of the chest and symmetric chest movement Auscultation: Bilateral: Clear to Auscultation Cardio Palpation: normal PMI Rate: regular rate Rhythm: regular rhythm Heart sounds: S1 normal and S2 normal; negative rub, gallop or murmur GI GI: normal to inspection, soft, no hepatosplenomegaly and bowel sounds present; negative tender Neuro General: alert, awake, oriented x3, CN's II-XI intact bilaterally and moves all extremities Extremities Pulses: Normal: Right Posterior Tibial Pulse, Left Posterior Tibial Pulse, Right Radial Pulse, Left Radial Pulse Lower Extremity Edema: None: Bilateral Psych Psychological: normal affect Supplemental Info Echocardiogram in 2013 demonstrates mild concentric LVH, mid inferior segmental left ventricular systolic dysfunction with a preserved ejection fraction of 60%. Trivial valvular insufficiency. RVSP 35 mmHg. Assessment AND Plan 1. Atherosclerosis of [place] coronary artery of [place] heart without angina pectoris I25.10 Plan - YAIR Reese Patient does not have any symptoms of angina however with the significance of his diabetes would like to obtain a stress test in the future as he has not had one done since his recent stenting in 2016. Patient states that he would like to have this done in the fall. He will call her office when he is ready to schedule this. We did discuss risk factor modifications and continued medical management. 2. Essential hypertension I10 YAIR Suggs Blood pressure is well controlled on current medications, we do not recommend any changes at this time. 3. Mixed hyperlipidemia E78.2 [place] - YAIR Reese His LDL was unable to be calculated due to the increase of his triglycerides. He is working with his primary care doctor on his diabetes as his A1c at that time was 12. He states that his blood sugars have been better since that time. He will repeat this in the near future. And we will adjust accordingly. 4. Controlled type 2 diabetes mellitus with peripheral circulatory disorder E11.51 Plan - YAIR Reese Managed by primary care doctor. Plan Detail Other Orders Orders: Additional Comments - YAIR Reese The above patient was discussed with Dr. Dougherty, he agrees with plan of care. Thank you for allowing us to participate in patient's plan of care, if you have any questions please do not hesitate to call. This note was generated using a voice recognition system and there may be incorrect words, spelling or punctuation errors that were not noted when reviewing the office note prior to saving. 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 transplanted heart: [place] heart Essential hypertension I10 Hypertension type: essential hypertension Mixed hyperlipidemia E78.2 Hyperlipidemia type: mixed hyperlipidemia Controlled type 2 diabetes mellitus with peripheral circulatory disorder E11.51 Coding Level of Care Code Off vis,est,level 3 Diagnoses Atherosclerosis of [place] coronary artery of [place] heart without angina pectoris I25.10 [place] vs. transplanted heart: [place] heart Essential hypertension I10 Hypertension type: essential hypertension Mixed hyperlipidemia E78.2 Hyperlipidemia type: mixed hyperlipidemia Controlled type 2 diabetes mellitus with peripheral circulatory disorder E11.51 06/16/17 1042 <Electronically signed by Radha MAZARIEGOS> Date Radha MAZARIEGOS 06/18/17 1058<Electronically signed by Earle Dougherty MD> Cosigner Signature: Date (if applicable) Earle Dougherty MD CC: Raúl Goss MD 12 LEAD EKG PERFORMED Observed: 06/16/2017 Status: F Source: OLI BY [facility] 9:52 AM [facility] REPOSITORY [facility] [address] [place] [address] 12 Lead EKG performed by [facility] 06/16/17951 MR#: [id number] Acct: [id number] Name: JAYASHREE JOHN Rep #: [id number] : 1965 52 From: Radha MAZARIEGOS Attending Dr: Radha Jaime Status: DEP AMB Ordering Dr: Radha Jaime Date: 06/16/17 Location: [facility] Sex: M C Admitted: BMS/12 Lead EKG performed by [facility] ECG Report Interpretation Sinus Rhythm WITHIN NORMAL LIMITSElectronically signed on 06/20/2017 at 13:40 by Earle Dougherty 06/20/17 1342 Date Radha MAZARIEGOS CC: Raúl Goss MD Date Dictated: 06/16/17951 Date Transcribed: 06/16/17951 [employer] Specialist: MARIA Signed CBC W/DIFF, AUTOMATED Collected: 04/15/2017 Status: F Source: OLI 8:23 AM [facility] REPOSITORY Order Comment: DR DOUGHERTY ORDERED LIVER LIPID ONLY TYPE CODE TESTS RESULT OUT OF RANGE REFERENCE UNITS LAB L100.1000 4.4-11.0 K/mm3 Normal WBC 7.1 LAB L100.1200 4.6-6.2 M/mm3 Normal RBC 4.85 LAB L100.1300 13.0-16.5 g/dl Normal HGB 15.2 LAB L100.1400 40-54 % Normal HCT 44.3 LAB L100.1500 80-94 fL Normal MCV 91.3 LAB L100.1600 27.0-32.0 pg Normal MCH 31.3 LAB L100.1700 32-36 g/gl Normal MCHC 34.3 LAB L100.1810 11.6-14.6 % Normal RDW CV 13.2 LAB L100.1820 35.1-43.9 fl Normal RDW SD 43.0 LAB L100.1900 150-450 K/mm3 Normal PLT 274 LAB L100.2000 6.2-12.0 fl Normal MPV 9.6 LAB L100.2100 47-70 % Normal NEUT% 58.5 LAB L100.2200 19-41 % Normal LY% 29.2 LAB L100.2300 0-10 % Normal MONO% 6.9 LAB L100.2400 0-5 % Normal EO% 4.2 LAB L100.2500 0-1 % Normal BASO% 0.6 LAB L100.2550 0.0-0.9 % Normal IM GRAN % 0.600 Result Comment: IG% - Immature Granulocytes (promyelocytes, myelocytes and metamyelocytes) > 1% indicates that a LEFT SHIFT is Present. LAB L100.2620 2.0-7.7 X10 3/uL Normal Absolute Neut 4.2 LAB L100.2720 0.83-4.51 X10 3/ul Normal Absolute Lymph 2.07 Performed By: #### L100.0100, L101.9900 #### [facility] [address], [place], [id number] ERYTHROCYTE SED RATE Collected: 04/15/2017 Status: F Source: OLI 8:23 AM [facility] REPOSITORY Order Comment: DR DOUGHERTY ORDERED LIVER LIPID ONLY TYPE CODE TESTS RESULT OUT OF RANGE REFERENCE UNITS LAB L102.0000 0-20 mm/hr Normal SED RATE 15 Performed By: #### L100.0100, L101.9900 #### [facility] [address], [place], [address] MICROALB:CREAT Collected: 04/15/2017 Status: F Source: OLI RATIO,RANDOM UR 8:23 AM [facility] REPOSITORY Order Comment: DR DOUGHERTY ORDERED LIVER LIPID ONLY TYPE CODE TESTS RESULT OUT OF RANGE REFERENCE UNITS LAB L501.1200 NO RANGE EST. mg/dL Normal UR CREAT 36.50 LAB L502.0500 NO RANGE EST. mg/L Normal 33.7 MICROALBUMIN ,UR LAB L502.0600 <30 mg/g CRE mg/g CRE High 92.3 MALB:CREAT Performed By: #### L502.0250 #### [facility] [address] [place], [address] HEMOGLOBIN A1C Collected: 04/15/2017 Status: F Source: OLI 8:23 AM [facility] REPOSITORY Order Comment: DR DOUGHERTY ORDERED LIVER LIPID ONLY TYPE CODE TESTS RESULT OUT OF RANGE REFERENCE UNITS LAB L501.9985 4.2-6.3 % High HGB A1C 12.0 Performed By: #### L501.9985 #### [facility] [address] [place], [address] BASIC METABOLIC Collected: 04/15/2017 Status: F Source: OLI PROFILE (BMP) 8:23 AM [facility] REPOSITORY Order Comment: DR DOUGHERTY ORDERED LIVER LIPID ONLY TYPE CODE TESTS RESULT OUT OF RANGE REFERENCE UNITS LAB L501.0100 74-106 mg/dL High GLU 258 Result Comment: Glucose result greater than or equal to 200 mg/dL suggests DIABETES MELLITUS per A.D.A. criteria. Please note revised GLUCOSE reference range effective 2017. LAB L501.1000 7-18 mg/dL High BUN 20 LAB L501.1100 0.70-1.30 mg/dL Normal CREAT,SERUM 0.70 Result Comment: The validity of the calculated GFR AND GFRAA in patients over 70 years has not been determined. Clinical correlation is essential. LAB L501.1110 >60 mL/min Normal EST GFR 125 Result Comment: Non- GFR Calc LAB L501.1115 >60 mL/min Normal EST GFR - AA 151 Result Comment: GFR Calc LAB L501.1300 10-20 RATIO High BUN/CRE 28.5 LAB L501.2200 8.5-10.1 mg/dL CA Normal 8.8 LAB L501.5300 136-145 mmol/L Low NA 133 LAB L501.5600 3.5-5.1 mmol/L K Normal 4.3 Result Comment: Slight Hemolysis, Result may be falsely increased. LAB L501.5900 98-107 mmol/L Normal CL 99 LAB L501.6100 21.0-32.0 mmol/L Normal CO2 24.0 LAB L501.6200 5-15 Normal GAP 10 Performed By: #### L500.2500, L500.3400, L500.4100, L501.6710, L501.9520, L505.7010 #### [facility] [address] [place], [place], [id number] LIVER PROFILE Collected: 04/15/2017 Status: F Source: RACHEL 8:23 AM [facility] REPOSITORY Order Comment: DR DOUGHERTY ORDERED LIVER LIPID ONLY TYPE CODE TESTS RESULT OUT OF RANGE REFERENCE UNITS LAB L501.1500 6.4-8.2 g/dL Normal T PROT 7.3 LAB L501.1800 3.2-5.0 g/dL Normal ALB 3.8 LAB L501.1950 2.2-4.2 g/dL Normal GLOB 3.5 LAB L501.4100 15-37 U/L Normal AST 17 Result Comment: Slight Hemolysis, Result may be falsely increased. LAB L501.4305 45-117 U/L Normal ALK P 82 LAB L501.4405 16-61 U/L Normal ALT 31 Result Comment: Please note revised ALT reference range effective 2017. LAB L501.4600 0.20-1.00 mg/dL Normal T BILI 0.30 LAB L501.4700 0.00-0.30 mg/dL Normal D < BILI 0.05 Performed By: #### L500.2500, L500.3400, L500.4100, L501.6710, L501.9520, L505.7010 #### [facility] [address] [place], [place], [id number] LIPID PROFILE Collected: 04/15/2017 Status: F Source: RACHEL 8:23 AM [facility] REPOSITORY Order Comment: DR DOUGHERTY ORDERED LIVER LIPID ONLY TYPE CODE TESTS RESULT OUT OF RANGE REFERENCE UNITS LAB L501.4900 200 mg/dL High CHOL 211 Result Comment: <200 mg/dL Desirable 200-240 mg/dL Borderline >240 mg/dL High Risk LAB L501.5000 mg/dL High TRIG 894 Result Comment: The drugs N-Acetylcysteine and Metamizole may falsely depress this assay. TRIGLYCERIDE IS GREATER THAN 400 mg/dL. LDL RESULT IS INVALID AND WILL NOT BE REPORTED. Serum Triglycerides Reference Interval Normal <150 mg/dL Borderline high 150 - 199 mg/dL High 200 - 499 mg/dL Very High > or = 500 mg/dL LAB L501.6400 mg/dL Low HDL 29 Result Comment: The drugs N-Acetylcysteine and Metamizole may falsely depress this assay. Reference Range HDL <40 mg/dL Low HDL Cholesterol HDL >or= 60 mg/dL High HDL Cholesterol LAB L501.6500 0-130 mg/dL Test Normal not performed LDL LAB L501.6600 5-40 mg/dL Test Normal not performed VLDL Performed By: #### L500.2500, L500.3400, L500.4100, L501.6710, L501.9520, L505.7010 #### [facility] [address] [facility] [place], [place], [id number] CRP Collected: 04/15/2017 Status: F Source: RACHEL 8:23 AM [facility] REPOSITORY Order Comment: DR DOUGHERTY ORDERED LIVER LIPID ONLY TYPE CODE TESTS RESULT OUT OF RANGE REFERENCE UNITS LAB L501.6710 0.0-3.0 mg/L Normal < 2.90 C-REACTIVE PROT Result Comment: C-Reactive Protein (CRP) provides useful information for the diagnosis, therapy and monitoring of inflammatory processes and associated diseases. For the evaluation of Relative Risk for Cardiovascular Disease, a High Sensitivity CRP (HSCRP) should be ordered. Performed By: #### L500.2500, L500.3400, L500.4100, L501.6710, L501.9520, L505.7010 #### [facility] [address] [facility] [place], [place], [id number] THYROID STIM HORMONE Collected: 04/15/2017 Status: F Source: RACHEL (TSH) 8:23 AM [facility] REPOSITORY Order Comment: DR DOUGHERTY ORDERED LIVER LIPID ONLY TYPE CODE TESTS RESULT OUT OF RANGE REFERENCE UNITS LAB L501.9520 0.358-3.74 uIU/mL Normal TSH 1.54 Performed By: #### L500.2500, L500.3400, L500.4100, L501.6710, L501.9520, L505.7010 #### [facility] [address] [place], [address] RHEUMATOID FACTOR Collected: 04/15/2017 Status: F Source: [place] 8:23 AM [facility] REPOSITORY Order Comment: DR DOUGHERTY ORDERED LIVER LIPID ONLY TYPE CODE TESTS RESULT OUT OF RANGE REFERENCE UNITS LAB L505.7010 <15 IU/mL Normal RHEUMATOID FAC < 10.0 Performed By: #### L500.2500, L500.3400, L500.4100, L501.6710, L501.9520, L505.7010 #### [facility] [address] [place], [address] VITAMIN D,25 HYDROXY Collected: 04/15/2017 Status: F Source: [place] 8:23 AM [facility] REPOSITORY Order Comment: DR DOUGHERTY ORDERED LIVER LIPID ONLY TYPE CODE TESTS RESULT OUT OF REFERENCE UNITS RANGE LAB L506.1000 29.95-100.01 ng/mL Low Vitamin D 15.2 25-OH Result Comment: Vitamin D 25(OH) Status Range Deficiency <20 ng/mL (50nmol/L) Insuffciency 20 - 30 ng/mL (50 - 75 nmol/L) Sufficiency 30 - 100 ng/mL (75 - 250 nmol/L) Toxicity >100 ng/mL (>250 nmol/L) Performed By: #### L506.1000 #### [facility] [address] [place], [address] ANTINUCLEAR ANTIBODIES Collected: 04/15/2017 Status: F Source: [place] DIRECT 8:23 AM [facility] REPOSITORY Order Comment: DR DOUGHERTY ORDERED LIVER LIPID ONLY TYPE CODE TESTS RESULT OUT OF RANGE REFERENCE UNITS LAB L3100.5475 Negative Normal Negative HERNANDEZ-DIRECT Result Comment: Performed at: - [facility] [address] [id number] Body Mechanic Apprentice: Jonnie Valenzuela PhD, Phone: [phone] Performed By: #### L3100.5475 #### [facility] (refer to report for specific site) refer to report for address and phone number HLA B27 Collected: 04/15/2017 Status: F Source: [place] 8:23 AM [facility] REPOSITORY Order Comment: DR DOUGHERTY ORDERED LIVER LIPID ONLY TYPE CODE TESTS RESULT OUT OF RANGE REFERENCE UNITS LAB L3410.1500 . Normal HLA Negative B27 Result Comment: HLA-B*27 Negative B27 allele interpretation for all loci based on IMGT/HLA database version 3.27 This test was developed and its performance characteristics determined by [facility]. It has not been cleared or approved by the Food and Drug Administration. [facility] CLIA ID Number [id number] This test was performed using PCR (Polymerase Chain Reaction)/SSOP (Sequence Specific Oligonucleotide Probes) technique. SBT (Sequence Based Typing) and/or SSP (Sequence Specific Primers) may be used as supplemental methods when necessary. Please contact [facility] Customer Service at if you have any questions. Director of [facility] Laboratory Dr Kaden Cr, PhD Performed By: #### L3410.1400, L4600.0100 #### [facility] (refer to report for specific site) refer to report for address and phone number CCP IGG ANTIBODIES Collected: 04/15/2017 Status: F Source: [place] 8:23 AM [facility] REPOSITORY Order Comment: DR DOUGHERTY ORDERED LIVER LIPID ONLY TYPE CODE TESTS RESULT OUT OF RANGE REFERENCE UNITS LAB L4600.0100 0-19 units Normal ANTI-CCP 3 133114 Result Comment: Negative <20 Weak positive 20 - 39 Moderate positive 40 - 59 Strong positive >59 Performed at: - [place] [id number] [place], [place] [id number] Body Mechanic Apprentice: Kaden Cr PhD, Phone: [phone] Performed at: [facility] Lab[address] [id number] Body Mechanic Apprentice: Pelon Matias MD, Phone: [phone] Performed By: #### L3410.1400, L4600.0100 #### [facility] (refer to report for specific site) refer to report for address and phone number ALLERGIES ALLERGIES DATE TYPE / CODE NAME / CODE REACTION SEVERITY SOURCE 02/28/2018 Drug cefprozil/F0 Hives Unknown [place] [facility] Allergy/4160 [phone]([facility] [address]458(SNOMED ORM) Repository CT) ENCOUNTERS ENCOUNTERS ADMIT/DISCHARGE ACCOUNT ADMITTING ENCOUNTER LOCATION SOURCE NUMBER CLASS 03/07/2018/ [id number] Ambulatory [place] 9 [facility] ing:SDCRoom: Repository AC03 02/23/2018/ [id number] Ambulatory BMSBuilding:B [place] 9 [address] [facility] Repository 01/24/2018 [id number] Ambulatory BMSBuilding:B [place] 5 [facility] Repository 11/22/2017 [id number] Ambulatory [place] 6 [facility] ing:LAB Repository 11/14/2017 [id number] Ambulatory [place] 3 [facility] ing:SDC Repository 09/26/2017/ [id number] Ambulatory [place] 8 2 [facility] ing:SDC Repository 06/16/2017/ [id number] Ambulatory BMSBuilding:B [place] [address] [facility] Repository 06/08/2017 [id number] Ambulatory BMS [place] 8 [facility] Repository 06/05/2017 [id number] Ambulatory BMSBuilding:B [place] [address] [facility] Repository 04/15/2017 [id number] [place] 8 [facility] ing:LAB Repository 03/20/2017 [id number] Ambulatory [place] 5 [facility] ing:[facility] Repository PAYERS PAYERS ENCOUNTER GUARANTOR PAYER SUBSCRIBER SOURCE 03/07/2018 JAYASHREE Goncalves Primary Insurance:[facility] MARIA M Baird [id number] [facility] 7831[place] Number: Repository [address]Qal: [phone]) [id number] [phone] () Date:1235-59-24[address] [address], [place] [address]HR: CHECK WEBSITE 03/07/2018 Secondary NOT GIVENUNK [place] Insurance:SELF PAY [facility] Number: Effective Repository Date:2018-02-19 02/23/2018 JAYASHREE Goncalves Primary Insurance:[facility] MARIA M Baird [id number] [facility]: [facility] 3209[place]40-[place] Number: Repository [address]Khq: 330 [id number] [phone] () Date:9358-02-54WB [address] [address]QF[place], [place] [address]GK: CHECK WEBSITE 02/23/2018 Secondary NOT GIVENUNK [place] Insurance:SELF PAY [facility] Number: Effective Repository Date:2017-10-26 01/24/2018 JAYASHREE Goncalves Primary Insurance:[facility] MARIA M ALVAREZER1882 [facility]: [facility] 5563[place]79-[place] Number: Repository [address]Lrn: 330 [id number] [phone] () Date:1694-81-50TU [address] [address]ZVZ[place], [place] [address]CK: CHECK WEBSITE 01/24/2018 Secondary NOT GIVENUNK [place] Insurance:SELF PAY [facility] Number: Effective Repository Date:2018-01-24 11/22/2017 JAYASHREE Goncalves Primary Insurance:[facility] MARIA M Baird [id number] [facility]: [address], [place] Number: Repository [address]Ika: 330 [id number] [phone] () Date:2919-33-00KK [address] [address]DYOLVSYOQ, [place] [address]VR: CHECK WEBSITE 11/22/2017 Secondary NOT GIVENUNK [place] Insurance:SELF PAY [facility] Number: Effective Repository Date:2017-11-22 11/14/2017 JAYASHREE Goncalves Primary Insurance:[facility] MARIA M ALVAREZER1882 [facility]: [facility] 2586-52-14[place] Number: Repository [address]Wjz: 330 [id number] [phone] () Date:2922-33-92MT [address] [address]OQFTLPJQP, [place] [address]WE: CHECK WEBSITE 11/14/2017 Secondary NOT GIVENUNK [place] Insurance:SELF PAY [facility] Number: Effective Repository Date:2017-09-08 09/26/2017 JAYASHREE Goncalves Primary Insurance:[facility] MARIA M Baird [id number] [facility]: [facility] 4160-48-59[place] Number: Repository [address]Pad: 330 [id number] [phone] () Date:3178-46-81IN [address] [address]XRJFVEZUU, [place] [address]FB: CHECK WEBSITE 09/26/2017 Secondary NOT GIVENUNK [place] Insurance:SELF PAY [facility] Number: Effective Repository Date:2017-09-08 06/16/2017 JAYASHREE R Primary Insurance:[facility] MARIA M Baird [id number] [facility] BRAERDOB: [facility] 4233-22-33[place] Number: Repository [address]Leg: [id number] [phone] Date:0416-49-99PN [address] [address]HK[place]WUVTR, [place] [address]NF: CHECK WEBSITE 06/16/2017 Secondary NOT GIVENUNK [place] Insurance:SELF PAY [facility] Number: Effective Repository Date:2017-06-16 06/08/2017 JAYASHREE R Primary Insurance:[facility] MARIA M ALVAREZER1882 [facility]DOB: [facility] 6233-20-20ZTY[place], [place] Number: Repository [address]Bco: [id number] [phone] Date:3726-97-58QJ [address] () [address]UMXECZ[place], [place] [address]NI: CHECK WEBSITE 06/08/2017 Secondary NOT GIVENUNK [place] Insurance:SELF PAY [facility] Number: Effective Repository Date:2017-06-08 06/05/2017 JAYASHREE R Primary Insurance:[facility] MARIA M ALVAREZER1882 [facility]: [facility] 0467-17-16[place] Number: Repository [address]Xmm: [id number] [phone] Date:1617-39-79MJ [address] [address], [place] [address]TA: CHECK WEBSITE 06/05/2017 Secondary NOT GIVENUNK [place] Insurance:SELF PAY [facility] Number: Effective Repository Date:2017-06-05 04/15/2017 JAYASHREE Goncalves Primary Insurance:[facility] MARIA M MOSERMMER1882 [facility] 1899-94-77QJYM[place], [place] Number: Repository [address]Wqs: [id number] [phone] Date:0223-32-65RW [address] () [address]HNSGT, [place] [address]EL: CHECK WEBSITE 04/15/2017 Secondary NOT GIVENUNK [place] Insurance:SELF PAY [facility] Number: Effective Repository Date:2017-04-15 03/20/2017 JAYASHREE Goncalves Primary Insurance:[facility] MARIA M Baird [id number] [facility] ALICEB: [address], [place] Number: Repository [address]Icd: [id number] [phone] Date:3526-65-18NK [address] () [address]RUJTT[place]WW, [place] [address]LO: CHECK WEBSITE 03/20/2017 Secondary NOT GIVENUNK [place] Insurance:SELF PAY [facility] Number: Effective Repository Date:2016-12-16
== END 2018-03-07 09:43 | disposition home or self-care (01) ==
LOC: SDC 06:25 → AC 06:26
PROVIDERS: Family Provider Family Medicine; PCP Family Medicine; Referring Provider Specialist; Visit Provider Specialist
PROC: (CPT 64721; principal; 2018-03-07 07:45)
DX: G56.02 Carpal tunnel syndrome, left upper limb (principal); I10 Essential (primary) hypertension; E11.9 Type 2 diabetes mellitus without complications; Z79.82 Long term (current) use of aspirin; Z95.5 Presence of coronary angioplasty implant and graft; Z87.891 Personal history of nicotine dependence
CPT/HCPCS: 64721; 82962; J7120

== ENCOUNTER → 2019-03-20 07:23 | Outpatient (CLI) | payer OTHER, SELFPAY ==
[2019-03-20 08:16] LABS: AST(SGOT) 11 U/L (15-37); Alanine Aminotransfer ALT/SGPT 25 U/L (16-61); Albumin, Serum 3.4 g/dL (3.2-5.0); Alkaline Phosphatase 80 U/L (45-117); Bilirubin, Direct 0.08 mg/dL (0.00-0.30); Cholesterol 162 mg/dL (200); Globulin 3.2 g/dL (2.2-4.2); High Density Lipoprotein 29 mg/dL; Protein, Total 6.6 g/dL (6.4-8.2); Triglycerides 449 mg/dL
== END ==
PROVIDERS: PCP Family Medicine; Referring Provider Nurse Practitioner Family; Visit Provider Nurse Practitioner Family
DX: E78.5 Hyperlipidemia, unspecified (principal)
CPT/HCPCS: 36415; 80061; 80076

== ENCOUNTER → 2019-04-22 07:46 | Outpatient (CLI) | payer OTHER, SELFPAY ==
[2019-03-22 08:58] VITALS: BMI 31.8
--- NOTE | 2019-04-22 07:47 | ECHOD_ITS ---
Version 2 Reason For Study: CAD/ASHD Procedure This was a 2D Doppler, Color Flow transthoracic echocardiogram. Exam performed in department. Left Ventricle Normal LV size. Left ventricular systolic function is normal. The estimated ejection fraction is 55 %. Normal diastology for age. No regional wall motion abnormalities noted. Right Ventricle Normal RV size. Normal systolic function. Atria Normal left atrium. Normal right atrium. Patent foramen ovale. Mitral Valve Normal mitral valve. Tricuspid Valve Normal tricuspid valve. Mild tricuspid valve insufficiency. Pulmonary artery systolic pressure is 33 mmHg. Aortic Valve Normal aortic valve. Trisinus/trileaflet aortic valve. Pulmonic Valve Normal pulmonic valve. Great Vessels Normal aortic root. The pulmonary artery is normal size. Normal inferior vena cava. Pericardium/Pleural No pericardial effusion. Medication Performed a rapid injection of agitated mix of 9 cc saline and 1cc air to assess for atrial septal defect. MMode/2D Measurements & Calculations LVIDd: 4.6 cm IVSd: 1.5 cm Ao root diam: 3.0 cm LVIDs: 2.9 cm LVPWd: 1.1 cm RVDd: 3.4 cm FS: 36.9 % LAV(MOD-bp): 38.9 ml LVAd ap4: 29.8 cm2 SV(MOD-sp4): 48.3 ml LAV(MOD-bp) Indexed: 19.9 ml/m2 EDV(MOD-sp4): 82.0 ml LAV(MOD-sp2): 43.1 ml EDV(sp4-el): 86.0 ml LAV(MOD-sp4): 29.4 ml LVAs ap4: 16.6 cm2 ESV(MOD-sp4): 33.7 ml ESV(sp4-el): 32.3 ml EF(MOD-sp4): 58.9 % EF(sp4-el): 62.4 % SV(sp4-el): 53.7 ml LA A4 area: 12.6 cm2 LA dimension(2D): 3.8 cm RA A4 area: 15.8 cm2 Doppler Measurements & Calculations MV E max marco antonio: 58.9 cm/sec Lat Peak E' Marco Antonio: 11.9 cm/sec Med Peak E' Marco Antonio: 6.4 cm/sec MV A max marco antonio: 69.8 cm/sec E/E' lat: 4.9 E/E' med: 9.2 MV E/A: 0.84 Ao V2 max: 146.7 cm/sec LV V1 max: 108.0 cm/sec PA V2 max: 113.2 cm/sec Ao max P.6 mmHg LV V1 max P.7 mmHg Ao V2 mean: 98.1 cm/sec Ao mean P.3 mmHg Ao V2 VTI: 29.0 cm TR max marco antonio: 264.5 cm/sec TR max P.0 mmHg Interpretation Summary Normal LV size. Left ventricular systolic function is normal. The estimated ejection fraction is 55 %. Normal diastology for age. Mild tricuspid valve insufficiency. Pulmonary artery systolic pressure is 33 mmHg. Patent foramen ovale. Ordering Physician: Earle Dougherty Referring Physician: Raúl Goss Performed By: Beulah Marlow, JACIEL, RVT
== END ==
PROVIDERS: PCP Family Medicine; Referring Provider Internal Medicine Cardiovascular Disease; Visit Provider Internal Medicine Cardiovascular Disease
DX: I25.10 Atherosclerotic heart disease of native coronary artery without angina pectoris (principal); I10 Essential (primary) hypertension; Z95.5 Presence of coronary angioplasty implant and graft
CPT/HCPCS: 93306; A4216

== ENCOUNTER → 2019-09-11 09:33 | Outpatient (CLI) | payer OTHER, SELFPAY ==
[2019-03-22 08:58] VITALS: BMI 31.8
--- NOTE | 2019-09-11 09:39 | MRI_ITS ---
STUDY: MRI RIGHT KNEE REASON FOR EXAM: Male, 54 years old. Right knee effusion. Pain. Inflammation. TECHNIQUE: Standardized fat and water weighted pulse sequences were obtained in all 3 orthogonal planes. COMPARISON: None. FINDINGS: Mild chondromalacia at the medial patellar facet (axial image 12 series 2). Remainder of the patellofemoral articular cartilage preserved. Lateral compartment articular cartilage preserved. Medial compartment articular cartilage preserved. No acute fracture. No acute dislocation. No acute bone destruction. Lateral meniscus intact. Medial meniscus intact. Focal soft tissue swelling deep to the distal iliotibial band insertion (coronal image 18 series 6). Mild quadriceps tendon fat edema/impingement (sagittal image 13 series 4). Trace joint effusion. Small multiseptated popliteal cyst. Normal medial collateral ligamentous complex (MCL). Normal distal semimembranosus, gracilis and semitendinosus tendons. Normal proximal tibiofibular articulation. Normal lateral collateral (fibular) ligament. Normal popliteus tendon. Normal biceps femoris tendon. Normal anterior cruciate ligament (ACL). Normal posterior cruciate ligament (PCL). Normal medial and lateral patellar retinaculum. Normal quadriceps tendon. Normal patellar tendon. Normal Hoffa''s fat pad. MRI/Lower Ext Joint Only (Routine) IMPRESSION: Iliotibial band syndrome/bursitis Mild quadriceps tendon fat pad edema/impingement Medial patellar facet mild chondromalacia Trace joint effusion and small popliteal cyst Electronically Signed: Raúl Fox DO at 10:38 EDT Tel , Service support ,
== END ==
PROVIDERS: PCP Family Medicine; Referring Provider Specialist; Visit Provider Specialist
DX: M25.461 Effusion, right knee (principal)
CPT/HCPCS: 73721

== ENCOUNTER → 2020-03-12 08:42 | Outpatient (CLI) | payer OTHER, SELFPAY ==
[2019-03-22 08:58] VITALS: BMI 31.8
[2020-03-12 09:40] LABS: AST(SGOT) 12 U/L (15-37); Alanine Aminotransfer ALT/SGPT 21 U/L (16-61); Albumin, Serum 3.8 g/dL (3.2-5.0); Alkaline Phosphatase 93 U/L (45-117); Bilirubin, Direct 0.06 mg/dL (0.00-0.30); Cholesterol 187 mg/dL (200); Globulin 3.3 g/dL (2.2-4.2); High Density Lipoprotein 31 mg/dL; Protein, Total 7.1 g/dL (6.4-8.2); Triglycerides 541 mg/dL
== END ==
PROVIDERS: PCP Family Medicine; Referring Provider Nurse Practitioner Family; Visit Provider Nurse Practitioner Family
DX: E78.00 Pure hypercholesterolemia, unspecified (principal); E78.5 Hyperlipidemia, unspecified
CPT/HCPCS: 36415; 80061; 80076

== ENCOUNTER 2020-05-08 10:58 | Outpatient (RCR) | payer OTHER, SELFPAY ==
[2020-03-19 09:03] VITALS: BMI 31.4
== END 2020-07-21 23:59 ==
LOC: IMMUN 10:58
PROVIDERS: PCP Family Medicine; Referring Provider Family Medicine; Visit Provider Family Medicine
DX: Z23 Encounter for immunization (principal)
CPT/HCPCS: 0001A; 0002A; 91300

== ENCOUNTER → 2020-11-06 07:37 | Outpatient (CLI) | payer OTHER, SELFPAY ==
[2020-11-06 08:33] LABS: Microalbumin,Random Urine 63.7 mg/L (NO RANGE EST.); Microalbumin:Creatinine Ratio 66.6 mg/g CRE (<30 mg/g CRE)
[2020-11-06 08:52] LABS: AST(SGOT) 13 U/L (15-37); Alanine Aminotransfer ALT/SGPT 22 U/L (16-61); Albumin, Serum 3.4 g/dL (3.2-5.0); Alkaline Phosphatase 71 U/L (45-117); Anion Gap 5 (5-15); BUN 18 mg/dL (7-18); BUN/Creat Ratio 24.4 RATIO (10-20); Calcium,Total 8.8 mg/dL (8.5-10.1); Chloride 103 mmol/L (98-107); Cholesterol 195 mg/dL (200); Creatinine, Serum 0.74 mg/dL (0.70-1.30); EST Glomerular Filtration Rate 116 mL/min (>60); Est Glom Filt Rate - Afr Amer 140 mL/min (>60); Globulin 3.4 g/dL (2.2-4.2); Glucose 284 mg/dL (74-106); High Density Lipoprotein 31 mg/dL; Potassium 4.2 mmol/L (3.5-5.1); Protein, Total 6.8 g/dL (6.4-8.2); Sodium Level 135 mmol/L (136-145); Thyroid Stim Hormone (TSH) 1.15 uIU/mL (0.358-3.74); Triglycerides 532 mg/dL
== END ==
PROVIDERS: PCP Family Medicine; Referring Provider Family Medicine; Visit Provider Family Medicine
DX: I25.10 Atherosclerotic heart disease of native coronary artery without angina pectoris (principal); E11.65 Type 2 diabetes mellitus with hyperglycemia
CPT/HCPCS: 36415; 80053; 80061; 82043; 82570; 84443

== ENCOUNTER → 2020-11-09 15:20 | Outpatient (CLI) | payer OTHER, SELFPAY | PROVIDERS: PCP Family Medicine; Visit Provider Family Medicine | DX: E78.1 Pure hyperglyceridemia (principal) ==

== ENCOUNTER → 2020-12-21 17:19 | Outpatient (CLI) | payer OTHER, SELFPAY ==
--- NOTE | 2020-12-21 17:35 | CT_ITS ---
STUDY: LOW DOSE CT LUNG CANCER SCREENING REASON FOR EXAM: Male, 55 years old. TOBACCO USE. The patient smoked 1-2 packs per day for 35 years. RADIATION DOSAGE (If Supplied By Facility): CTDIvol = ( 3.02 ) mGy, DLP = ( 106.08 ) mGycm TECHNIQUE: No contrast was administered. Low dose technique was utilized (average mAS-38 and kVp 120). 1.25 mm axial source images with a slice interval of 1.25-mm were reconstructed in lung windows. 2.5 mm axial source images with a slice interval of 2.5-mm were reconstructed in lung windows. 5.0 mm axial source images with a slice interval of 5.0-mm were reconstructed in soft tissue windows. Nodule measured using lung windows on PACS and/or independent workstation with automated measurement of minimum and maximum diameter. Nodule measurement reported as average diameter rounded to the nearest whole number. Growth is defined as an increase ins size of greater than 1.5 mm. COMPARISON: None. NODULES: No suspicious nodules are seen. Emphysema: Mild degree of emphysematous changes. Mild degree of linear scarring in the lingular segment of the left upper lobe. Endobronchial lesion: None Aorta: Atherosclerotic plaque formation of the aortic arch. Coronary arteries: Coronary artery calcification. Heart: Unremarkable. Pulmonary artery: Unremarkable. Mediastinal nodes: Calcified left hilar lymph nodes. Other chest and abdominal findings: CT/Low Dose CT Lung Screening IMPRESSION: Lung-RADS category 2 - Continue annual screening with LDCT in 12 months. IMPORTANT NOTES FOR USE: ACR Lung-RADS Version 1.1 Assessment Categories Release Date: 2018 Category: Coded 0-4 bases on nodule(s) with highest degree of suspicion. Negative screen is defined as categories 1 and 2; a positive screen is defined as categories 3 and 4. Category 3 and 4A nodules that are unchanged on interval CT should be coded as category 2, and individuals returned to screening in 12 months. Category 4X: Category 3 or 4 nodules with additional imaging findings that increase the suspicion of lung cancer, such as spiculation, GGN that doubles in size in 1 year, enlarged lymph notes, etc. Category Modifiers: S (significant finding unrelated to lung cancer) Electronically Signed: Jimmie Winston MD at 11:10 EST , Service support ,
== END ==
LOC: CT 17:20
PROVIDERS: PCP Family Medicine; Visit Provider Family Medicine
DX: Z12.2 Encounter for screening for malignant neoplasm of respiratory organs (principal); Z72.0 Tobacco use
CPT/HCPCS: 71271

== ENCOUNTER → 2021-12-24 | Outpatient (CLI) | payer OTHER, SELFPAY ==
[2021-12-24 07:10] LABS: Absolute Lymphocyte Count 2.34 X10^3/uL (0.83-4.51); Absolute Neutrophil Count 3.7 X10^3/uL (2.0-7.7); Basophil# 0.08 X10^3/uL; Basophil% 1.1 % (0-1); Eosinophil# 0.42 X10^3/uL; Eosinophils% 5.9 % (0-5); Hematocrit 41.1 % (40-54); Hemoglobin 14.4 g/dL (13.0-16.5); Lymphocyte # 2.34 X10^3/ul (0.83-4.51); Mean Corpuscular Hgb 31.8 pg (27.0-32.0); Mean Corpuscular Volume 90.7 fL (80-94); Mean Platelet Vol. 9.7 fl (6.2-12.0); Monocyte# 0.56 X10^3/uL; Monocyte% 7.9 % (0-10); NRBC Flagged by Analyzer 0 % (0-5); Neutrophil # 3.65 X10^3/uL (2.7-7.7); Neutrophil % 51.5 % (47-70); Platelet Count 291 K/mm3 (150-450); RBC Distribution Width CV 12.3 % (11.6-14.6); RBC Distribution Width SD 40.7 fl (35.1-43.9); Red Blood Count 4.53 M/mm3 (4.6-6.2); White Blood Count 7.1 K/mm3 (4.4-11.0)
[2021-12-24 07:43] LABS: Microalbumin,Random Urine 71.8 mg/L (NO RANGE EST.); Microalbumin:Creatinine Ratio 90.2 mg/g CRE (<30 mg/g CRE)
[2021-12-24 07:44] LABS: ALB/GLOB Ratio 1.1 RATIO (0.9-2.4); AST(SGOT) 13 U/L (15-37); Alanine Aminotransfer ALT/SGPT 23 U/L (16-61); Albumin, Serum 3.5 g/dL (3.2-5.0); Alkaline Phosphatase 77 U/L (45-117); Anion Gap 6 (5-15); BUN 15 mg/dL (7-18); Calcium,Total 9.1 mg/dL (8.5-10.1); Chloride 99 mmol/L (98-107); Cholesterol 152 mg/dL (200); Creatinine, Serum 0.68 mg/dL (0.70-1.30); EST Glomerular Filtration Rate 126 mL/min (>60); Est Glom Filt Rate - Afr Amer 153 mL/min (>60); Globulin 3.1 g/dL (2.2-4.2); Glucose 285 mg/dL (74-106); High Density Lipoprotein 34 mg/dL; Potassium 4.4 mmol/L (3.5-5.1); Protein, Total 6.6 g/dL (6.4-8.2); Sodium Level 135 mmol/L (136-145); Triglycerides 220 mg/dL; Very Low Density Lipoprotein 44 mg/dL (5-40)
[2021-12-24 07:48] LABS: Hemoglobin A1c 12.5 % (3.8-5.6)
== END | disposition home or self-care (01) ==
PROVIDERS: PCP Family Medicine; Referring Provider Family Medicine; Visit Provider Family Medicine
DX: I10 Essential (primary) hypertension (principal); E11.59 Type 2 diabetes mellitus with other circulatory complications; F17.200 Nicotine dependence, unspecified, uncomplicated
CPT/HCPCS: 36415; 80053; 80061; 82043; 82570; 83036; 85025

== ENCOUNTER → 2022-07-14 | Outpatient (CLI) | payer OTHER, SELFPAY ==
[2022-07-14 10:49] LABS: Erythrocyte Sedimentation Rate 6 mm/hr (0-20)
[2022-07-14 10:51] LABS: Absolute Lymphocyte Count 1.85 X10^3/uL (0.83-4.51); Absolute Neutrophil Count 3.3 X10^3/uL (2.0-7.7); Basophil# 0.06 X10^3/uL; Eosinophil# 0.26 X10^3/uL; Eosinophils% 4.4 % (0-5); Hematocrit 42.8 % (40-54); Hemoglobin 14.5 g/dL (13.0-16.5); Lymphocyte # 1.85 X10^3/ul (0.83-4.51); Lymphocyte % 31.2 % (19-41); Mean Corp Hgb Conc 33.9 g/dL (32-36); Mean Corpuscular Hgb 30.9 pg (27.0-32.0); Mean Corpuscular Volume 91.3 fL (80-94); Mean Platelet Vol. 9.8 fl (6.2-12.0); Monocyte# 0.47 X10^3/uL; Monocyte% 7.9 % (0-10); NRBC Flagged by Analyzer 0 % (0-5); Neutrophil # 3.27 X10^3/uL (2.7-7.7); Neutrophil % 55.2 % (47-70); Platelet Count 275 K/mm3 (150-450); RBC Distribution Width CV 13.2 % (11.6-14.6); RBC Distribution Width SD 44.1 fl (35.1-43.9); Red Blood Count 4.69 M/mm3 (4.6-6.2); White Blood Count 5.9 K/mm3 (4.4-11.0)
[2022-07-14 11:08] LABS: Vitamin D,25 Hydroxy 71.8 ng/mL
[2022-07-14 11:34] LABS: ALB/GLOB Ratio 1.1 RATIO (0.9-2.4); AST(SGOT) 19 U/L (15-37); Alanine Aminotransfer ALT/SGPT 28 U/L (16-61); Albumin, Serum 3.7 g/dL (3.2-5.0); Alkaline Phosphatase 73 U/L (45-117); Anion Gap 8 (5-15); BUN 15 mg/dL (7-18); BUN/Creat Ratio 20.7 RATIO (10-20); CRP < 2.90 mg/L (0.0-3.0); Calcium,Total 9.1 mg/dL (8.5-10.1); Chloride 104 mmol/L (98-107); Creatinine, Serum 0.72 mg/dL (0.70-1.30); EST Glomerular Filtration Rate 118 mL/min (>60); Est Glom Filt Rate - Afr Amer 142 mL/min (>60); Globulin 3.3 g/dL (2.2-4.2); Glucose 204 mg/dL (74-106); Potassium 4.5 mmol/L (3.5-5.1); Rheumatoid Factor < 10.0 IU/mL (<15); Sodium Level 137 mmol/L (136-145); Thyroid Stim Hormone (TSH) 1.28 uIU/mL (0.358-3.74)
[2022-07-15 12:09] LABS: ANTINUCLEAR ANTIBODIES DIRECT Negative (Negative)
[2022-07-15 15:08] LABS: Deamidated Gliadin IgA 7 units (0-19); Deamidated Gliadin IgG 3 units (0-19); Endomysial Antibody IgA Negative (Negative); Immunoglobulin A 120 mg/dL (90-386); Lyme Scn Total Ab w/Rflx Negative (Negative); PROEL- A/G Ratio 1.4 (0.7-1.7); PROEL- Albumin 3.7 g/dL (2.9-4.4); PROEL- Alpha-1 Globulin 0.2 g/dL (0.0-0.4); PROEL- Alpha-2 Globulin 0.7 g/dL (0.4-1.0); PROEL- Beta Globulin 1.1 g/dL (0.7-1.3); PROEL- Gamma Globulin 0.6 g/dL (0.4-1.8); PROEL- Globulin, Total 2.6 g/dL (2.2-3.9); PROEL- TOTAL PROTEIN 6.3 g/dL (6.0-8.5); t-Transglutaminase IgA <2 U/mL (0-3)
== END | disposition home or self-care (01) ==
LOC: MFPLAB 08:48
PROVIDERS: PCP Family Medicine; Visit Provider Family Medicine
DX: M25.50 Pain in unspecified joint (principal); E11.59 Type 2 diabetes mellitus with other circulatory complications
CPT/HCPCS: 80053; 82306; 82784; 83516; 84165; 84443; 85025; 85652; 86038; 86140; 86225; 86235; 86255; 86431; 86618

== ENCOUNTER → 2022-09-20 | Outpatient (CLI) | payer OTHER, SELFPAY ==
--- NOTE | 2022-09-20 12:57 | STRESSREP ---
Stress Test Report Pharmacologic myocardial perfusion stress test. 57-year-old man with a history of chest pain Resting EKG demonstrates sinus bradycardia with a rate of 54 bpm. Resting blood pressure is 124/72 mmHg. 0.4 mg of regadenoson was infused per usual protocol followed by rapid intravenous saline flush injection. Continuous EKG monitoring was performed. The maximum heart rate was 76 bpm which was 47% of max impacted heart rate the maximum workload was 1 metabolic equivalent. At rest there were no ST or T wave changes noted to suggest ischemia and at peak infusion nonspecific ST changes were noted which did not meet the criteria for ischemia. No clinical angina is noted. The final blood pressure was 118/72 mmHg. Myocardial perfusion protocol. 11.9 mCi of technetium 99m sestamibi was injected at rest. 0.4 mg of regadenoson was infused per usual protocol. At peak infusion 34.4 mCi of technetium 99m sestamibi was injected stress images were obtained stress and rest images were reconstructed and compared in the short axis vertical long and horizontal long axis. Gated images were also obtained. Perfusion SPECT analysis: Review of the stress images demonstrate normal uptake of tracer noted in all areas of the myocardium. The resting images similar demonstrated normal uptake of tracer noted in all areas of the myocardium. No areas of reversibility are noted to suggest ischemia and no previous infarct is noted. Gated SPECT analysis: The gated ejection fraction is 64%. Conclusion: Normal pharmacologic myocardial perfusion stress test. Preserved ejection fraction.
== END | disposition home or self-care (01) ==
LOC: CVS 06:25
PROVIDERS: PCP Family Medicine; Referring Provider Nurse Practitioner Family; Visit Provider Nurse Practitioner Family
DX: I10 Essential (primary) hypertension (principal); E11.9 Type 2 diabetes mellitus without complications; E78.2 Mixed hyperlipidemia; Z95.5 Presence of coronary angioplasty implant and graft
CPT/HCPCS: 78452; 93017; A9500; A4216; J2785

== ENCOUNTER → 2023-04-20 | Outpatient (CLI) | payer OTHER, SELFPAY ==
--- OUTSIDE RECORDS SUMMARY | 2023-04-20 07:02 | XMS RPT_ITS | CCD ---
Author Name Unknown Address [address] [place] [address] Organization [facility] Care Team Providers Care L[place]ades Supervisor Name Role Phone Sindi FAGAN, Haritha Osborn Unavailable Unavailable DeFinis, Harumi Y Unavailable Unavailable DeFinis, Harumi Y Unavailable Unavailable DeFinis, Harumi Y Unavailable Unavailable MD Farhat, Earle Gutierrez Unavailable Medications Completed/Discontinued Medications Medication Drug Class(es) Dates Sig (Normalized) Sig (Original) aspirin 81 mg oral tablet (12 sources) Nonsteroidal Anti-inflammatory Drug Start: 05-28-2010 take 1 tablet by mouth once daily ASPIRIN 81 MG TABS One tablet by mouth daily ASPIRIN [id number] Zainab Jon Problems Active Problems Problem Classification Problem Date Documented Date Episodic/Chronic Acute myocardial infarction (12 sources) Subsequent ST elevation (STEMI) myocardial infarction of inferior wall; Translations: [Subsequent ST elevation (STEMI) myocardial infarction of inferior wall] Onset: 05-28-2010 Resolved: 03-17-2015 03-17-2015 Chronic Coronary atherosclerosis and other heart disease (20 sources) Atherosclerotic heart disease of telida coronary artery without angina pectoris; Translations: [Coronary arteriosclerosis] Onset: 05-28-2010 Resolved: 03-17-2015 03-17-2015 Chronic Diabetes mellitus with complications (6 sources) Type 2 diabetes mellitus with diabetic peripheral angiopathy without gangrene; Translations: [Type 2 diabetes mellitus with diabetic peripheral angiopathy without gangrene] Onset: 05-28-2010 05-28-2010 Disorders of lipid metabolism (6 sources) Hyperlipidemia; Translations: [Hyperlipidemia, unspecified] Onset: 05-28-2010 05-28-2010 Chronic Essential hypertension (6 sources) Hypertensive disorder; Translations: [Essential (primary) hypertension] Onset: 05-27-2016 05-27-2016 Chronic Unclassified (6 sources) Body mass index (BMI) 31.0-31.9, adult; Translations: [Body mass index (BMI) 31.0-31.9, adult] Onset: 11-07-2013 11-07-2013 Chronic Unclassified (6 sources) Sleep apnea; Translations: [Sleep apnea, unspecified] Onset: 05-28-2010 05-28-2010 Chronic Unclassified (6 sources) Placement of stent in coronary artery ; Translations: [Presence of coronary angioplasty implant and graft] Onset: 05-28-2010 03-17-2015 Unclassified (5 sources) Long-term drug therapy; Translations: [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] Onset: 05-28-2010 05-28-2010 Past or Other Problems Problem Classification Problem Date Documented Da te Episodic/Chronic Coronary atherosclerosis and other heart disease (11 sources) Coronary angioplasty status; Translations: [History of myocardial infarction] Onset: 05-28-2010 05-28-2010 Episodic Other aftercare (1 source) Other care home (current) drug therapy; Translations: [Other care home (current) drug therapy] Onset: 05-28-2010 05-28-2010 Episodic Other circulatory disease (1 source) History of myocardial infarction; Translations: [Old myocardial infarction] Onset: 05-28-2010 05-28-2010 Episodic Results Test Name Value Interpretation Reference Range Facil ity Vital Signs Date Time Vital Sign Value Performing Clinician Toño christopher 12-16-2016 08:27-0400 BMI (Body Mass Index) 31.78 kg/m2 [facility] Work Phone: 12-16-2016 08:27-0400 BP Diastolic 78 mm[Hg] Red Seraphimis [facility] Work Phone: 12-16-2016 08:27-0400 BP Systolic 122 mm[Hg] Red Seraphimis [facility] Work Phone: 12-16-2016 08:27-0400 Height 171.45 cm Red Seraphimis [facility] Work Phone: 12-16-2016 08:27-0400 Pulse (Heart Rate) 62 /min [facility] Work Phone: 12-16-2016 08:27-0400 Respiratory Rate 18 /min [facility] Work Phone: 12-16-2016 08:27-0400 Weight 93.44 kg [facility] Work Phone: 05-27-2016 08:44-0400 BMI (Body Mass Index) 31.17 kg/m2 MD [facility] Work Phone: 05-27-2016 08:44-0400 BP Diastolic 80 mm[Hg] MD [facility] Work Phone: 05-27-2016 08:44-0400 BP Systolic 120 mm[Hg] MD [facility] Work Phone: 05-27-2016 08:44-0400 Height 171.45 cm MD [facility] Work Phone: 05-27-2016 08:44-0400 Pulse (Heart Rate) 74 /min MD [facility] Work Phone: 05-27-2016 08:44-0400 Respiratory Rate 20 /min MD [facility] Work Phone: 05-27-2016 08:44-0400 Weight 91.63 kg MD [facility] Work Phone: 10-08-2015 15:57-0400 BSA (Body Surface Area) 2.02 m2 MD [facility] Work Phone: Procedures Date Procedure Procedure Detail Performing Clinician Start: 05-27-2016 End: 05-27-2016 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 Jack Irena Hearn ASSISTANT DIRECTOR OF NURSING-C Start: 05-27-2016 End: 05-27-2016 Follow Up Appt 6 months Jack A Hearn ASSISTANT DIRECTOR OF NURSING -C Start: 05-27-2016 End: 05-27-2016 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 REPLANTER Jack Irena Hearn ASSISTANT DIRECTOR OF NURSING-C Start: 05-27-2016 End: 05-27-2016 Follow Up Appt 6 months Jack A Hearn ASSISTANT DIRECTOR OF NURSING -C Start: 04-04-2016 End: 12-14-2016 *Hepatic Function Panel [place] S Farhat, M D Start: 04-04-2016 End: 12-14-2016 Lipid 1996 panel - Serum or Plasma Earle Dougherty MD Start: 04-04-2016 End: 12-14-2016 *Hepatic Function Panel Savage Carrillo Start: 04-04-2016 End: 12-14-2016 Lipid panel [AGGREGATE] Savage Carrillo Start: 10-08-2015 End: 03-24-2016 Follow Up Appt 6 months Savage Carrillo Start: 10-08-2015 End: 03-24-2016 MMM Earle Dougherty MD Start: 10-08-2015 End: 03-24-2016 Follow Up Appt 6 months Savage Carrillo Start: 10-08-2015 End: 03-24-2016 MMM Earle Dougherty MD Start: 03-20-2015 End: 03-20-2015 Follow Up Appt 6 months Savage Carrillo Start: 03-20-2015 End: 03-20-2015 MMM Earle Dougherty MD Start: 03-20-2015 End: 03-20-2015 Follow Up Appt 6 months Savage Carrillo Start: 03-20-2015 End: 03-20-2015 MMM Earle Dougherty MD Start: 05-05-2014 End: 09-09-2015 *Hepatic Function Panel Savage Carrillo Start: 05-05-2014 End: 09-09-2015 Lipid 1996 panel - Serum or Plasma Earle Dougherty MD Start: 05-05-2014 End: 09-09-2015 *Hepatic Function Panel Savage Carrillo Start: 05-05-2014 End: 09-09-2015 Lipid panel [AGGREGATE] Savage Carrillo Start: 11-07-2013 End: 11-07-2013 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 REPLANTER Radha Jaime PA-C Work Phone: Start: 11-07-2013 End: 11-07-2013 Ecg routine ecg w/least 12 lds w/i&r Radha Jaime PA-C Work Phone: Start: 11-07-2013 End: 11-07-2013 Follow Up Appt 6 months Radha ramos PA-C Work Phone: Start: 11-07-2013 End: 11-07-2013 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 REPLANTER Radha Jaime PA-C Work Phone: Start: 11-07-2013 End: 11-07-2013 Electrocardiogram, complete Radha Garcia PA-C Work Phone: Start: 11-07-2013 End: 11-07-2013 Follow Up Appt 6 months Radha ramos PA-C Work Phone: Start: 05-08-2013 End: 11-05-2013 *Hepatic Function Panel Savage Carrillo Start: 05-08-2013 End: 05-08-2013 Follow Up Appt 6 months Savage Carrillo Start: 05-08-2013 End: 11-05-2013 Lipid 1996 panel - Serum or Plasma Earle Dougherty MD Start: 05-08-2013 End: 05-08-2013 MMM Earle Dougherty MD Start: 05-08-2013 End: 11-05-2013 *Hepatic Function Panel Savage Carrillo Start: 05-08-2013 End: 05-08-2013 Follow Up Appt 6 months Savage Carrillo Start: 05-08-2013 End: 11-05-2013 Lipid panel [AGGREGATE] Savage Carrillo Start: 05-08-2013 End: 05-08-2013 MM Earle Dougherty MD Start: 04-13-2013 End: 10-30-2013 *Hepatic Function Panel Donta Sarkar MD Start: 04-13-2013 End: 10-30-2013 Lipid 1996 panel - Serum or Plasma Donta Sarkar MD Start: 04-13-2013 End: 10-30-2013 *Hepatic Function Panel Donta Sarkar MD Start: 04-13-2013 End: 10-30-2013 Lipid panel [AGGREGATE] Donta Sarkar MD Start: 04-03-2012 End: 11-05-2012 *Hepatic Function Panel Raj Lucia MD Start: 04-03-2012 End: 10-30-2013 Follow Up Appt 1 year Raj Lucia MD Start: 04-03-2012 End: 10-30-2013 Lipid 1996 panel - Serum or Plasma Raj Lucia MD Start: 04-03-2012 End: 11-05-2012 *Hepatic Function Panel Raj Lucia MD Start: 04-03-2012 End: 10-30-2013 Follow Up Appt 1 year Raj Lucia MD Start: 04-03-2012 End: 10-30-2013 Lipid panel [AGGREGATE] Raj Lucia MD Start: 03-28-2012 End: 11-06-2012 *Hepatic Function Panel Raj Lucia MD Start: 03-28-2012 End: 11-06-2012 Lipid 1996 panel - Serum or Plasma Raj Lucia MD Start: 03-28-2012 End: 11-06-2012 *Hepatic Function Panel Raj Lucia MD Start: 03-28-2012 End: 11-06-2012 Lipid panel [AGGREGATE] Raj Lucia MD Start: 01-02-2012 End: 02-23-2012 Echocardiography Raj Lucia MD Start: 01-02-2012 End: 02-23-2012 Echocardiography Raj Lucia MD Start: 11-16-2011 End: 01-02-2012 *Hepatic Function Panel Raj Lucia MD Start: 11-16-2011 End: 01-02-2012 Lipid 1996 panel - Serum or Plasma Raj Lucia MD Start: 11-16-2011 End: 01-02-2012 *Hepatic Function Panel Raj Lucia MD Start: 11-16-2011 End: 01-02-2012 Lipid panel [AGGREGATE] Raj Lucia MD Start: 06-07-2011 End: 01-02-2012 Echocardiography Raj Lucia MD Start: 06-07-2011 End: 01-02-2012 Nuclear stress test -exercise Raj Lucia MD Start: 06-07-2011 End: 01-02-2012 Echocardiography Raj Lucia MD Start: 06-07-2011 End: 01-02-2012 Nuclear stress test -exercise Raj Lucia MD Plan of Treatment Date Care Activity Detail Author Start: 06-16-2017 End: 06-16-2017 Appointment Appointment [facility] Work Phone: Start: 12-16-2016 End: 12-16-2016 *Hepatic Function Panel *Hepatic Function Panel [facility] Work Phone: Start: 12-16-2016 End: 12-16-2016 Echocardiography Echocardiogram (complete) [facility] Work Phone: Start: 12-16-2016 End: 12-16-2016 Follow Up Appt 6 months Follow Up Appt 6 months [facility] Work Phone: Start: 12-16-2016 End: 12-16-2016 Lipid panel [AGGREGATE] *Lipid Profile CC PCP [facility] Work Phone: Start: 12-16-2016 End: 12-16-2016 MMM MMM [facility] Work Phone: Start: 12-16-2016 End: 12-16-2016 Nuclear stress test -exercise Nuclear stress test -exercise [facility] Work Phone: Start: 12-16-2016 End: 12-16-2016 Appointment Appointment [facility] Work Phone: Start: 12-16-2016 End: 12-16-2016 *Hepatic Function Panel *Hepatic Function Panel [facility] Work Phone: Start: 12-16-2016 End: 12-16-2016 Echocardiography Echocardiogram (complete) [facility] Work Phone: Start: 12-16-2016 End: 12-16-2016 Follow Up Appt 6 months Follow Up Appt 6 months [facility] Work Phone: Start: 12-16-2016 End: 12-16-2016 Lipid panel [AGGREGATE] *Lipid Profile CC PCP [facility] Work Phone: Start: 12-16-2016 End: 12-16-2016 MMM MMM [facility] Work Phone: Start: 12-16-2016 End: 12-16-2016 Nuclear stress test -exercise Nuclear stress test -exercise [facility] Work Phone: Start: 05-27-2016 End: 05-27-2016 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 REPLANTER 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 REPLANTER [facility] Work Phone: Start: 05-27-2016 End: 05-27-2016 Follow Up Appt 6 months Follow Up Appt 6 months [facility] Work Phone: Start: 05-27-2016 End: 05-27-2016 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 REPLANTER 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 REPLANTER [facility] Work Phone: Start: 05-27-2016 End: 05-27-2016 Follow Up Appt 6 months Follow Up Appt 6 months [facility] Work Phone: Start: 04-04-2016 End: 12-14-2016 *Hepatic Function Panel *Hepatic Function Panel [facility] Work Phone: Start: 04-04-2016 End: 12-14-2016 Lipid panel [AGGREGATE] *Lipid Profile CC PCP [facility] Work Phone: Start: 04-04-2016 End: 12-14-2016 *Hepatic Function Panel *Hepatic Function Panel [facility] Work Phone: Start: 04-04-2016 End: 12-14-2016 Lipid panel [AGGREGATE] *Lipid Profile CC PCP [facility] Work Phone: Start: 10-08-2015 End: 03-24-2016 Follow Up Appt 6 months Follow Up Appt 6 months [facility] Work Phone: Start: 10-08-2015 End: 03-24-2016 MMM MMM [facility] Work Phone: Start: 10-08-2015 End: 03-24-2016 Follow Up Appt 6 months Follow Up Appt 6 months [facility] Work Phone: Start: 10-08-2015 End: 03-24-2016 MMM MMM [facility] Work Phone: Start: 03-20-2015 End: 03-20-2015 Follow Up Appt 6 months Follow Up Appt 6 months [facility] Work Phone: Start: 03-20-2015 End: 03-20-2015 MM MM [facility] Work Phone: Start: 03-20-2015 End: 03-20-2015 Follow Up Appt 6 months Follow Up Appt 6 months [facility] Work Phone: Start: 03-20-2015 End: 03-20-2015 MM MM [facility] Work Phone: Start: 05-05-2014 End: 09-09-2015 *Hepatic Function Panel *Hepatic Function Panel [facility] Work Phone: Start: 05-05-2014 End: 09-09-2015 Lipid panel [AGGREGATE] *Lipid Profile CC PCP [facility] Work Phone: Start: 05-05-2014 End: 09-09-2015 *Hepatic Function Panel *Hepatic Function Panel [facility] Work Phone: Start: 05-05-2014 End: 09-09-2015 Lipid panel [AGGREGATE] *Lipid Profile CC PCP [facility] Work Phone: Start: 11-07-2013 End: 11-07-2013 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 REPLANTER 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 REPLANTER [facility] Work Phone: Start: 11-07-2013 End: 11-07-2013 Ecg routine ecg w/least 12 lds w/i&r EKG (In office) [facility] Work Phone: Start: 11-07-2013 End: 11-07-2013 Follow Up Appt 6 months Follow Up Appt 6 months [facility] Work Phone: Start: 11-07-2013 End: 11-07-2013 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 REPLANTER 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 REPLANTER [facility] Work Phone: Start: 11-07-2013 End: 11-07-2013 Electrocardiogram, complete EKG (In office) [facility] Work Phone: Start: 11-07-2013 End: 11-07-2013 Follow Up Appt 6 months Follow Up Appt 6 months [facility] Work Phone: Start: 05-08-2013 End: 11-05-2013 *Hepatic Function Panel *Hepatic Function Panel [facility] Work Phone: Start: 05-08-2013 End: 05-08-2013 Follow Up Appt 6 months Follow Up Appt 6 months [facility] Work Phone: Start: 05-08-2013 End: 11-05-2013 Lipid panel [AGGREGATE] *Lipid Profile CC PCP [facility] Work Phone: Start: 05-08-2013 End: 05-08-2013 MMM MMM [facility] Work Phone: Start: 05-08-2013 End: 11-05-2013 *Hepatic Function Panel *Hepatic Function Panel [facility] Work Phone: Start: 05-08-2013 End: 05-08-2013 Follow Up Appt 6 months Follow Up Appt 6 months [facility] Work Phone: Start: 05-08-2013 End: 11-05-2013 Lipid panel [AGGREGATE] *Lipid Profile CC PCP [facility] Work Phone: Start: 05-08-2013 End: 05-08-2013 MMM MMM [facility] Work Phone: Start: 04-13-2013 End: 10-30-2013 *Hepatic Function Panel *Hepatic Function Panel [facility] Work Phone: Start: 04-13-2013 End: 10-30-2013 Lipid panel [AGGREGATE] *Lipid Profile CC PCP [facility] Work Phone: Start: 04-13-2013 End: 10-30-2013 *Hepatic Function Panel *Hepatic Function Panel [facility] Work Phone: Start: 04-13-2013 End: 10-30-2013 Lipid panel [AGGREGATE] *Lipid Profile CC PCP [facility] Work Phone: Start: 04-03-2012 End: 11-05-2012 *Hepatic Function Panel *Hepatic Function Panel [facility] Work Phone: Start: 04-03-2012 End: 10-30-2013 Follow Up Appt 1 year Follow Up Appt 1 year [facility] Work Phone: Start: 04-03-2012 End: 10-30-2013 Lipid panel [AGGREGATE] *Lipid Profile [facility] Work Phone: Start: 04-03-2012 End: 11-05-2012 *Hepatic Function Panel *Hepatic Function Panel [facility] Work Phone: Start: 04-03-2012 End: 10-30-2013 Follow Up Appt 1 year Follow Up Appt 1 year [facility] Work Phone: Start: 04-03-2012 End: 10-30-2013 Lipid panel [AGGREGATE] *Lipid Profile [facility] Work Phone: Start: 03-28-2012 End: 11-06-2012 *Hepatic Function Panel *Hepatic Function Panel [facility] Work Phone: Start: 03-28-2012 End: 11-06-2012 Lipid panel [AGGREGATE] *Lipid Profile [facility] Work Phone: Start: 03-28-2012 End: 11-06-2012 *Hepatic Function Panel *Hepatic Function Panel [facility] Work Phone: Start: 03-28-2012 End: 11-06-2012 Lipid panel [AGGREGATE] *Lipid Profile [facility] Work Phone: Start: 01-02-2012 End: 01-02-2012 Echocardiography Echocardiogram (complete) [facility] Work Phone: Start: 01-02-2012 End: 01-02-2012 Follow Up Appt 3 months Follow Up Appt 3 months [facility] Work Phone: Start: 01-02-2012 End: 01-02-2012 Echocardiography Echocardiogram (complete) [facility] Work Phone: Start: 01-02-2012 End: 01-02-2012 Follow Up Appt 3 months Follow Up Appt 3 months [facility] [employer] [facility] Work Phone: Start: 11-16-2011 End: 01-02-2012 *Hepatic Function Panel *Hepatic Function Panel [facility] [employer] [facility] Work Phone: Start: 11-16-2011 End: 01-02-2012 Lipid panel [AGGREGATE] *Lipid Profile [facility] Phone: Start: 11-16-2011 End: 01-02-2012 *Hepatic Function Panel *Hepatic Function Panel [facility] Work Phone: Start: 11-16-2011 End: 01-02-2012 Lipid panel [AGGREGATE] *Lipid Profile [facility] Work Phone: Start: 06-07-2011 End: 06-07-2011 Echocardiography Echocardiogram (complete) [facility] Phone: Start: 06-07-2011 End: 06-07-2011 Follow Up Appt 6 months Follow Up Appt 6 months [facility] Phone: Start: 06-07-2011 End: 06-07-2011 Nuclear stress test -exercise Nuclear stress test -exercise [facility] Work Phone: Start: 06-07-2011 End: 06-07-2011 Echocardiography Echocardiogram (complete) [facility] Phone: Start: 06-07-2011 End: 06-07-2011 Follow Up Appt 6 months Follow Up Appt 6 months [facility] Work Phone: Start: 06-07-2011 End: 06-07-2011 Nuclear stress test -exercise Nuclear stress test -exercise [facility] Work Phone: Patient Education HYPERLIPIDEMIA , HYPERLIPIDEMIA [facility] Work Phone: Additional Source Comments FOR RECORDS PERTAINING TO PATIENTS WHO ARE OR HAVE BEEN ENROLLED IN A CHEMICAL DEPENDENCY/SUBSTANCEABUSE PROGRAM, SOME INFORMATION MAY BE OMITTED. This clinical summary was aggregated from multiple sources. Caution should be exercised in using it in the provision of clinical care. This summary normalizes information from multiple sources, and as a consequence, information in this document may materially change the coding, format and clinical context of patient data. In addition, data may be omitted in some cases. CLINICAL DECISIONS SHOULD BE BASED ON THE PRIMARY CLINICAL RECORDS. [facility] [employer] [facility]. provides no warranty or guarantee of the accuracy or completeness of information in this document.
[2023-04-20 07:29] LABS: Absolute Lymphocyte Count 2.47 X10^3/uL (0.83-4.51); Absolute Neutrophil Count 2.8 X10^3/uL (2.0-7.7); Basophil# 0.09 X10^3/uL; Basophil% 1.4 % (0-1); Eosinophil# 0.32 X10^3/uL; Hematocrit 44.5 % (40-54); Hemoglobin 14.6 g/dL (13.0-16.5); Lymphocyte # 2.47 X10^3/ul (0.83-4.51); Mean Corp Hgb Conc 32.8 g/dL (32-36); Mean Corpuscular Hgb 30.1 pg (27.0-32.0); Mean Corpuscular Volume 91.8 fL (80-94); Mean Platelet Vol. 9.7 fl (6.2-12.0); Monocyte# 0.64 X10^3/uL; Monocyte% 10.1 % (0-10); NRBC Flagged by Analyzer 0 % (0-5); Neutrophil # 2.79 X10^3/uL (2.7-7.7); Platelet Count 287 K/mm3 (150-450); RBC Distribution Width SD 43.5 fl (35.1-43.9); Red Blood Count 4.85 M/mm3 (4.6-6.2); White Blood Count 6.3 K/mm3 (4.4-11.0)
[2023-04-20 08:19] LABS: ALB/GLOB Ratio 1.2 RATIO (0.9-2.4); AST(SGOT) 13 U/L (15-37); Alanine Aminotransfer ALT/SGPT 24 U/L (16-61); Albumin, Serum 3.7 g/dL (3.2-5.0); Alkaline Phosphatase 72 U/L (45-117); Anion Gap 6 (5-15); BUN 17 mg/dL (7-18); BUN/Creat Ratio 18.8 RATIO (10-20); Calcium,Total 8.9 mg/dL (8.5-10.1); Chloride 101 mmol/L (98-107); Cholesterol 158 mg/dL (200); EST Glomerular Filtration Rate 91 mL/min (>60); Est Glom Filt Rate - Afr Amer 110 mL/min (>60); Globulin 3.2 g/dL (2.2-4.2); Glucose 233 mg/dL (74-106); High Density Lipoprotein 31 mg/dL; Potassium 4.8 mmol/L (3.5-5.1); Protein, Total 6.9 g/dL (6.4-8.2); Sodium Level 136 mmol/L (136-145); Triglycerides 336 mg/dL; Very Low Density Lipoprotein 67 mg/dL (5-40)
[2023-04-20 11:57] LABS: Hemoglobin A1c 8.6 % (3.8-5.6)
[2023-04-20 12:32] LABS: Microalbumin,Random Urine 50.9 mg/L (NO RANGE EST.); Microalbumin:Creatinine Ratio 103.9 mg/g CRE (<30 mg/g CRE)
== END | disposition home or self-care (01) ==
LOC: LAB 06:59
PROVIDERS: PCP Family Medicine; Referring Provider Family Medicine; Visit Provider Family Medicine
DX: E11.59 Type 2 diabetes mellitus with other circulatory complications (principal); Z98.61 Coronary angioplasty status
CPT/HCPCS: 36415; 80053; 80061; 82043; 82570; 83036; 85025

== ENCOUNTER → 2023-11-09 | Outpatient (CLI) | payer OTHER, SELFPAY ==
[2023-11-09 09:51] LABS: Absolute Neutrophil Count 4.3 X10^3/uL (2.0-7.7); Basophil# 0.08 X10^3/uL; Eosinophil# 0.34 X10^3/uL; Eosinophils% 4.2 % (0-5); Hematocrit 44.3 % (40-54); Hemoglobin 14.4 g/dL (13.0-16.5); Lymphocyte % 31.2 % (19-41); Mean Corp Hgb Conc 32.5 g/dL (32-36); Mean Corpuscular Hgb 30.4 pg (27.0-32.0); Mean Corpuscular Volume 93.5 fL (80-94); Mean Platelet Vol. 9.9 fl (6.2-12.0); Monocyte# 0.72 X10^3/uL; NRBC Flagged by Analyzer 0 % (0-5); Neutrophil # 4.34 X10^3/uL (2.7-7.7); Neutrophil % 54.2 % (47-70); Platelet Count 252 K/mm3 (150-450); RBC Distribution Width CV 13.1 % (11.6-14.6); RBC Distribution Width SD 44.8 fl (35.1-43.9); Red Blood Count 4.74 M/mm3 (4.6-6.2)
[2023-11-09 10:17] LABS: Hemoglobin A1c 8.5 % (3.8-5.6)
[2023-11-09 10:21] LABS: Microalbumin,Random Urine 37.2 mg/L (NO RANGE EST.); Microalbumin:Creatinine Ratio 70.9 mg/g CRE (<30 mg/g CRE)
[2023-11-09 10:37] LABS: ALB/GLOB Ratio 1.1 RATIO (0.9-2.4); AST(SGOT) 21 U/L (15-37); Alanine Aminotransfer ALT/SGPT 30 U/L (16-61); Albumin, Serum 3.4 g/dL (3.2-5.0); Alkaline Phosphatase 68 U/L (45-117); Anion Gap 3 (5-15); BUN 19 mg/dL (7-18); Calcium,Total 9.3 mg/dL (8.5-10.1); Chloride 102 mmol/L (98-107); Creatinine, Serum 0.73 mg/dL (0.70-1.30); EST Glomerular Filtration Rate 116 mL/min (>60); Est Glom Filt Rate - Afr Amer 140 mL/min (>60); Globulin 3.1 g/dL (2.2-4.2); Glucose 194 mg/dL (74-106); PSA,Total - Annual Screen 0.65 ng/mL (0.00-4.00); Potassium 4.9 mmol/L (3.5-5.1); Protein, Total 6.5 g/dL (6.4-8.2); Sodium Level 134 mmol/L (136-145)
== END | disposition home or self-care (01) ==
LOC: LAB 08:45
PROVIDERS: PCP Family Medicine; Referring Provider Family Medicine; Visit Provider Family Medicine
DX: I10 Essential (primary) hypertension (principal); E11.59 Type 2 diabetes mellitus with other circulatory complications; R80.9 Proteinuria, unspecified; Z12.5 Encounter for screening for malignant neoplasm of prostate; Z98.61 Coronary angioplasty status
CPT/HCPCS: 36415; 80053; 82043; 82570; 83036; 84153; 85025; G0103

== ENCOUNTER → 2024-07-01 | Outpatient (CLI) | payer OTHER, SELFPAY ==
[2024-07-01 08:42] LABS: Hematocrit 42.5 % (40-54); Hemoglobin 14.1 g/dL (13.0-16.5); Mean Corp Hgb Conc 33.2 g/dL (32-36); Mean Corpuscular Hgb 31.2 pg (27.0-32.0); Mean Platelet Vol. 9.8 fl (6.2-12.0); Platelet Count 229 K/mm3 (150-450); RBC Distribution Width CV 13.2 % (11.6-14.6); RBC Distribution Width SD 45.6 fl (35.1-43.9); Red Blood Count 4.52 M/mm3 (4.6-6.2); White Blood Count 6.6 K/mm3 (4.4-11.0)
[2024-07-01 09:04] LABS: Microalbumin,Random Urine 27.1 mg/L (NO RANGE EST.); Microalbumin:Creatinine Ratio 359.9 mg/g CRE
[2024-07-01 09:29] LABS: ALB/GLOB Ratio 1.6 RATIO (0.9-2.4); AST(SGOT) 25 U/L (<=37); Alanine Aminotransfer ALT/SGPT 27 U/L (<=46); Albumin, Serum 4.1 g/dL (3.4-4.8); Alkaline Phosphatase 59 U/L (40-129); Anion Gap 8 (5-15); BUN 31 mg/dL (4-19); BUN/Creat Ratio 43.1 RATIO (10-20); Calcium,Total 8.9 mg/dL (7.6-11.0); Carbon Dioxide 23.4 mmol/L (21.0-32.0); Chloride 103 mmol/L (98-108); Cholesterol 131 mg/dL (<=200); Creatinine, Serum 0.73 mg/dL (0.70-1.20); EST Glomerular Filtration Rate 104 (>60); Globulin 2.5 g/dL (2.2-4.2); Glucose 139 mg/dL (70-99); High Density Lipoprotein 34 mg/dL; Low Density Lipoprotein Calc. 78 mg/dL; Potassium 4.4 mmol/L (3.3-5.1); Protein, Total 6.6 g/dL (5.9-8.4); Sodium Level 135 mmol/L (133-145); Total Bilirubin 0.24 mg/dL (0.00-1.30); Triglycerides 99 mg/dL; Very Low Density Lipoprotein 20 mg/dL (5-40); cholesterol:hdl ratio screen 3.89
== END | disposition home or self-care (01) ==
PROVIDERS: PCP Family Medicine; Referring Provider Family Medicine; Visit Provider Family Medicine
DX: E11.59 Type 2 diabetes mellitus with other circulatory complications (principal); Z98.61 Coronary angioplasty status; Z12.5 Encounter for screening for malignant neoplasm of prostate
CPT/HCPCS: 80053; 80061; 82043; 82570; 84443; 85027

== ENCOUNTER → 2024-12-17 | Outpatient (CLI) | payer OTHER, SELFPAY | END | disposition home or self-care (01) | LOC: LABSPEC 14:42 | PROVIDERS: PCP Family Medicine; Visit Provider Physician Assistant | DX: R30.0 Dysuria (principal) | CPT/HCPCS: 87086 ==